=== PATIENT | female | born 1950 | race Caucasian/White ===

== ENCOUNTER → 2019-03-02 08:20 | Outpatient (CLI) | payer MEDICARE, OTHER, SELFPAY | PROVIDERS: Visit Provider Physician Assistant | DX: N39.0 Urinary tract infection, site not specified (principal) | CPT/HCPCS: 87086 ==

== ENCOUNTER → 2020-01-12 15:06 | Outpatient (CLI) | payer MEDICARE, OTHER, SELFPAY | PROVIDERS: Visit Provider Nurse Practitioner | DX: N39.0 Urinary tract infection, site not specified (principal) | CPT/HCPCS: 87086 ==

== ENCOUNTER → 2020-09-29 15:02 | Outpatient (CLI) | payer MEDICARE, OTHER, SELFPAY ==
[2020-09-29 17:00] LABS: Appearance Urine UA SL CLOUDY; Bilirubin Urine UA NEGATIVE (NEGATIVE); Leukocyte Esterase Urine UA TRACE (NEGATIVE); Occult Blood Urine UA NEGATIVE (Negative)
[2020-09-29 17:07] LABS: Color Urine UA ORANGE; RBC Urine 1-5/HPF (0-5/HPF); Squamous Epithelial Cell Urine 1-5 /HPF (0-5/HPF); WBC Urine 5-10/HPF (0-5/HPF)
[2020-09-29 17:08] LABS: Bacteria Urine Few (2-10); Calcium Oxalate Crystals Urine Moderate; Culture Indicated Urine Specimen Cultured
== END ==
PROVIDERS: PCP Nurse Practitioner Family; Referring Provider Nurse Practitioner Family; Visit Provider Nurse Practitioner Family
DX: R30.0 Dysuria (principal)
CPT/HCPCS: 81001; 87086

== ENCOUNTER 2020-12-07 18:51 | Emergency (ER) | payer MEDICARE, OTHER, SELFPAY ==
[2020-12-07 19:04] VITALS: BMI 34.5
--- NOTE | 2020-12-07 19:10 | DI.RAD.S_ITS ---
PROCEDURE: XR HUMERUS LT 2V INDICATIONS: fell against dresser. TECHNIQUE: 2 views of the humerus were acquired. COMPARISON: None. FINDINGS: Bones: Mildly impacted left humeral head fracture. Glenohumeral alignment appears intact. Degenerative changes of the glenohumeral and acromioclavicular joints. No suspicious bony lesions. Soft tissues: No suspicious soft tissue calcifications. IMPRESSION: Mildly impacted left humeral head fracture. Dictated by: Wali Saenz M.D. on 12/07/2020 at 19:35 Approved by: Wali Saenz M.D. on 12/07/2020 at 19:37
[2020-12-07] MEDS: KETOROLAC 60 MG/2 ML VIAL 30 MG IM (19:39)
[2020-12-07] MEDS: TRAMADOL 50 MG TABLET 25 MG PO (19:54)
--- NOTE | 2020-12-07 20:12 | ED.UPPEXIN ---
HPI - Extremity Injury (Upper) General Chief Complaint: Extremity Injury, Upper Stated Complaint: fell left shoulder Time Seen by Provider: 12/07/20 19:24 Source: patient and family Mode of arrival: Wheelchair Limitations: no limitations History of Present Illness HPI narrative: Patient here with . Patient complains of left shoulder pain/injury. Tonight was in her bedroom trying to get changed for the evening. Tripped on the bed comforter and left shoulder hit the night stand. Denies any other injuries. No numbness tingling weakness to the hand. MD complaint: injury to: left and shoulder Related Data Home Medications Medication Instructions Recorded Confirmed coQ10 (liposomal ubiquinol) PO 11/12/18 09/29/20 echinacea PO 11/12/18 09/29/20 multi vitamin PO 11/12/18 09/29/20 vitamin D PO 11/12/18 09/29/20 vitamin c PO 11/12/18 09/29/20 Previous Rx's Medication Instructions Recorded ondansetron 4 mg PO Q8H PRN #10 tab 12/07/20 tramadol 50 mg PO TID PRN #14 tab 12/07/20 Allergies Allergy/AdvReac Type Severity Reaction Status Date / Time orange surgical soap Allergy Mild rash Uncoded 09/29/20 14:36 Review of Systems Review of Systems Narrative: GENERAL: Denies chills, fatigue, malaise, fever, sweats. HEENT: Denies sinus pain, ear pain, sore throat, difficulty swallowing RESPIRATORY: Denies dyspnea, cough CARDIOVASCULAR: Denies chest pain, palpitations, edema, GASTROINTESTINAL: Denies nausea, vomiting, abdominal pain, diarrhea, constipation, melena. MUSCULOSKELETAL: Complains of muscle and bony pain SKIN: Denies rash, skin lesions NEUROLOGIC: Denies weakness, headache, numbness, change in speech, confusion PSYCHIATRIC: No SI or HI or hallucinations ROS Unobtainable: All systems reviewed & are unremarkable except as noted in HPI and below Patient History Medical History Glucosuria Retinal degeneration Social History Smoking Status: Never smoker Smoking Status: Never smoker alcohol intake frequency: 0-2 drinks per day Substance Use Type: does not use Exam Narrative Exam Narrative: GENERAL: patient appears stated age. Well-nourished, well-developed patient, in no distress, not toxic not dyspneic HEAD: Normocephalic. EXTREMITIES: Examination left upper extremity. 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 Able to seasonal warehouse associate strongly. Elbow nontender. Limited range of motion of the left shoulder due to pain. No gross deformity. No skin injury. No bruising. NEURO: AOx4. SKIN: Warm and dry PSYCH: Not anxious, is cooperative Course Course Course Narrative: Tramadol tolerated by patient. Orders Ordered: ED Orders 12/07/20 19:10 XR humerus LT 2V Stat Discontinued Medications Ketorolac Tromethamine (Ketorolac 60 Mg/2 Ml Vial) 30 mg IM NOW ONE Stop: 12/07/20 19:25 Last Admin: 12/07/20 19:39 Dose: 30 mg Documented by: SHABANA Tramadol HCl (Tramadol 50 Mg Tablet) 25 mg PO NOW ONE Stop: 12/07/20 19:50 Last Admin: 12/07/20 19:54 Dose: 25 mg Documented by: JEFF Tramadol HCl (Tramadol 50 Mg Prepack) [facility] Stop: 12/07/20 20:20 Last Admin: 12/07/20 20:23 Dose: 1 bottle Documented by: SHABANA Reevaluation(s) Reevaluation #1: Reviewed results with patient and discussion with Orthopedics. They agree with follow-up. Agree with pain medication prescribed. Time: 20:27 Consultations Consultation #1: Spoke with Dr. Baires, orthopedics. Agrees with sling and follow-up in the office. Time: 20:27 MDM - Extremity Injury (Upper) Differential Diagnosis Differential diagnosis: Likely fracture of humerus Imaging Data Extremity x-ray #1: Radiologist's Impression: [address] [id number] ReportSigned Patient: Ruth Stern [facility]#: [id number]: 1950Acct:[id number]/Sex: 70 / FDate of Service: 12/07/20Loc: EDAccession Number: [id number] Procedure: XR humerus LT 2V Ordering Provider: Joey Calderon MD PROCEDURE: XR HUMERUS LT 2V INDICATIONS: fell against dresser. TECHNIQUE: 2 views of the humerus were acquired. COMPARISON: None. FINDINGS: Bones: Mildly impacted left humeral head fracture. Glenohumeral alignment appears intact. Degenerative changes of the glenohumeral and acromioclavicular joints. No suspicious bony lesions. Soft tissues: No suspicious soft tissue calcifications. IMPRESSION: Mildly impacted left humeral head fracture. Dictated by: Wali Saenz M.D. on 12/07/2020 at 19:35 Approved by: Wali Saenz M.D. on 12/07/2020 at 19:37 [facility] Narrative Medical decision making narrative: Appropriate for discharge home. Pain control. Patient tolerated medication. The tolerated sling as well. Discharge Plan Departure Patient Disposition: Home Clinical Impression: Fracture of humeral head, closed Qualifiers: Encounter type: initial encounter Laterality: left Qualified Code(s): S42.292A - Other displaced fracture of upper end of left humerus, initial encounter for closed fracture Instructions: How to Use a Sling, DI for Humeral Fracture Activity Restrictions/Additional Instructions: No driving or operating machinery until cleared by Orthopedics. Call provided orthopedic office in the morning for office time within a week. Use sling for comfort. Return if worsening questions or concerns or numbness or tingling or weakness to the hand or arm. Prescriptions: New tramadol 50 mg tablet 50 mg PO TID PRN (Reason: pain) Qty: 14 RF: 0 ondansetron 4 mg tablet,disintegrating 4 mg PO Q8H PRN (Reason: nausea and vomiting) Qty: 10 RF: 0 No Action multi vitamin PO RF: 0 vitamin D PO RF: 0 echinacea PO RF: 0 coQ10 (liposomal ubiquinol) PO RF: 0 vitamin c PO RF: 0 Referrals: Dana Ascencio ARNP [Primary Care Provider] - Hardik Baires MD [Physician] -
[2020-12-07] MEDS: TRAMADOL 50 MG PREPACK 1 BOTTLE MISC (20:23)
== END 2020-12-07 20:35 | disposition home or self-care (01) ==
PROVIDERS: Emergency Provider Emergency Medicine; PCP Nurse Practitioner Family
DX: S42.292A Other displaced fracture of upper end of left humerus, initial encounter for closed fracture (principal); W22.8XXA Striking against or struck by other objects, initial encounter
CPT/HCPCS: 73060; 96372; 99283; J1885

== ENCOUNTER → 2020-12-14 08:51 | Outpatient (CLI) | payer MEDICARE, OTHER, SELFPAY ==
[2020-12-14] MEDS: COVID-19 VACC #1, MRNA(MOD) 100 MCG/0.5 ML VIAL IM (08:57)
== END ==
PROVIDERS: PCP Nurse Practitioner Family; Visit Provider Internal Medicine
DX: Z23 Encounter for immunization (principal)
CPT/HCPCS: 0011A; 91301

== ENCOUNTER → 2021-01-11 07:37 | Outpatient (CLI) | payer MEDICARE, OTHER, SELFPAY ==
[2021-01-11] MEDS: COVID-19 VACC #2, MRNA(MOD) 100 MCG/0.5 ML VIAL IM (07:47)
== END ==
PROVIDERS: PCP Nurse Practitioner Family; Visit Provider Internal Medicine
DX: Z23 Encounter for immunization (principal)
CPT/HCPCS: 0012A; 91301

== ENCOUNTER → 2021-07-18 07:21 | Outpatient (CLI) | payer MEDICARE, OTHER, SELFPAY | PROVIDERS: PCP Nurse Practitioner Family; Visit Provider Physician Assistant | DX: N39.0 Urinary tract infection, site not specified (principal) | CPT/HCPCS: 87086 ==

== ENCOUNTER 2021-08-17 10:33 | Emergency (ER) | payer MEDICARE, OTHER, SELFPAY ==
[2021-08-17 10:35] VITALS: BP 160/106; PULSE 81; RESP 14; TEMP 37; O2SAT 97; BMI 33.6
[2021-08-17 10:43] VITALS: BP 160/46; PULSE 80; RESP 18; O2SAT 98
--- NOTE | 2021-08-17 10:43 | ED.ABDPAIN ---
HPI - Abdominal Pain General Chief Complaint: Abdominal Pain Stated Complaint: Abd pain, dry heaving x 2 days Time Seen by Provider: 08/17/21 10:34 Source: patient Mode of arrival: Ambulatory Limitations: no limitations History of Present Illness HPI narrative: 71-year-old female nonsmoker with history of gastric surgery in 2010 presents with her in the chief complaint of left lower quadrant pain for the past few days and dry heaves. She states her pain seems to be worse with motion and standing up and improves with rest. She denies any radiation of the pain. She states it aching crampy in nature. She states it is about a 6/10 in severity that has been present more often than not over the past few days. She denies any history of the same. She has had nausea and dry heaves but no actual vomiting. She states that she took some Pepto-Bismol which helped a bit with the nausea but has done nothing for the pain. She denies any change in bowel habits such as constipation or diarrhea. She denies any dysuria, frequency or urgency but was treated for UTI about 2 weeks ago. She is not dizzy nor weak or lightheaded. She does feel fatigued and slept much of the day yesterday. She has had no respiratory symptoms nor any exposure to those with COVID Related Data Home Medications Medication Instructions Recorded Confirmed coQ10 (liposomal ubiquinol) PO 11/12/18 07/18/21 echinacea PO 11/12/18 07/18/21 multi vitamin PO 11/12/18 07/18/21 vitamin D PO 11/12/18 07/18/21 vitamin c PO 11/12/18 07/18/21 acetaminophen 500 mg tablet 500 mg PO Q6H PRN 03/15/21 07/18/21 (Tylenol Extra Strength) Previous Rx's Medication Instructions Recorded loratadine-pseudoephedrine ER 10 1 tab PO DAILY #30 tab 03/15/21 mg-240 mg tablet,extended [id number] (Claritin-D 24 Hour) hydrocodone 5 mg-acetaminophen 325 1 tab PO Q4-6H PRN #10 tab 08/17/21 mg tablet ketorolac 10 mg tablet 10 mg PO Q6H PRN #14 tab 08/17/21 ondansetron 4 mg disintegrating 4 mg PO TID-QID PRN #10 tab 08/17/21 tablet tamsulosin 0.4 mg capsule (Flomax) 0.4 mg PO DAILY #20 cap 08/17/21 Allergies Allergy/AdvReac Type Severity Reaction Status Date / Time orange soap in OR Allergy Uncoded 08/17/21 10:42 Review of Systems Review of Systems Narrative: GENERAL: See HPI HEENT: Denies sinus pain, ear pain, sore throat, difficulty swallowing, dizziness. RESPIRATORY: Denies dyspnea, cough, wheezing, hemoptysis, sputum. CARDIOVASCULAR: Denies chest pain, palpitations, orthopnea, edema, GASTROINTESTINAL: See HPI : Denies dysuria, frequency, incontinence, hematuria, urinary retention. MUSCULOSKELETAL: denies weakness, joint pain, or bony pain SKIN: Denies rash, skin lesions, or other NEUROLOGIC: Denies weakness, headache, numbness, change in speech, confusion, seizures, incoordination. PSYCHIATRIC: No concerning psychosocial issues. 12 point review of systems is negative except for those stated above Patient History Medical History Glucosuria Retinal degeneration Seasonal allergies Social History Smoking Status: Never smoker Smoking Status: Never smoker alcohol intake frequency: 0-2 drinks per day Substance Use Type: does not use Exam Narrative Exam Narrative: GENERAL: [71 year old patient appears stated age. Well-developed patient, in mild distress. HEAD: Atraumatic. Normocephalic. EYES: Pupils equal round and reactive. Extraocular motions intact. No scleral icterus. No injection or drainage. ENT: Nose without bleeding, purulent drainage. Throat without erythema, tonsillar hypertrophy or exudate. Airway patent. NECK: Trachea midline. Non tender CARDIOVASCULAR: Regular rate and rhythm without murmurs, gallops, or rubs. RESPIRATORY: Clear to auscultation. Breath sounds equal bilaterally. No wheezes, rales, or rhonchi. GASTROINTESTINAL: Abdomen soft, non-tender, nondistended. EXTREMITIES: No edema or joint tenderness. BACK: Nontender without deformity or crepitance. No flank tenderness. NEURO: AOx3. SKIN: No rash or erythema of visible areas Initial Vital Signs Initial Vital Signs: Vital Signs Temperature 98.6 F 08/17/21 10:35 Pulse Rate 81 08/17/21 10:35 Respiratory Rate 14 08/17/21 10:35 Blood Pressure 160/106 H 08/17/21 10:35 Pulse Oximetry 97 08/17/21 10:35 Course Orders Ordered: Discontinued Medications Hydromorphone HCl (Hydromorphone 0.5 Mg Inj) 0.5 mg IV NOW ONE Stop: 08/17/21 11:43 Last Admin: 08/17/21 11:47 Dose: 0.5 mg Documented by: DOLORES Sodium Chloride (Normal Saline 0.9%) 1,000 mls @ 1,000 mls/hr IV BOLUS ONE Stop: 08/17/21 11:42 Last Infusion: 08/17/21 11:55 Dose: 0 mls/hr Documented by: Admin: 08/17/21 10:50 Dose: 1,000 mls/hr Documented by: HARDY Ondansetron HCl (Ondansetron 4 Mg/2 Ml Inj) 4 mg IV NOW ONE Stop: 08/17/21 10:44 Last Admin: 08/17/21 10:51 Dose: 4 mg Documented by: HARDY Pantoprazole Sodium (Pantoprazole 40 Mg Vial) 40 mg IV NOW ONE Stop: 08/17/21 10:44 Last Admin: 08/17/21 10:50 Dose: 40 mg Documented by: HARDY Vital Signs Vital signs: Vital Signs - 8 hr 08/17/21 10:35 08/17/21 10:43 Temperature 98.6 F Pulse Rate 81 80 Respiratory Rate 14 18 Blood Pressure 160/106 H 160/46 H Pulse Oximetry 97 98 MDM - Abdominal Pain Lab Data Result diagrams: 08/17/21 10:55 08/17/21 10:55 Labs: Lab Results 08/17/21 08/17/21 Range/Units 10:55 10:55 WBC 9.2 (4.5-11.0) X10^3/uL RBC 4.35 (4.0-5.2) X10^6/uL Hgb 12.8 (12.0-16.0) g/dL Hct 38.7 (36-46) % MCV 88.9 (80-100) fL MCH 29.5 (26-34) PG MCHC 33.2 (30-36) % RDW 13.4 (11.6-14.8) % Plt Count 179 (150-400) X10^3/uL Neut % (Auto) 75.9 H (50-75) % Lymph % (Auto) 14.4 L (25-40) % [place] % (Auto) 8.3 (3-14) % Eos % (Auto) 0.8 L (2-4) % Baso % (Auto) 0.6 (0-2) % Neut # (Auto) 7000 (8354-6742) /uL Lymph # (Auto) 1300 (2146-4433) /uL [place] # (Auto) 800 (0-900) /uL Eos # (Auto) 100 (0-450) /uL Baso # (Auto) 100 (0-100) /uL Sodium 134 L (137-145) mmol/L Potassium 4.2 (3.4-5.1) mmol/L Chloride 99 (98-107) mmol/L Carbon Dioxide 27 (22-32) mmol/L BUN 23 H (7-17) mg/dL Creatinine 1.06 H (0.52-1.04) mg/dL Estimated GFR 51.1 L (>60) mL/min BUN/Creatinine Ratio 21.7 (6-22) Glucose 294 H (80-110) mg/dL Calcium 9.2 (8.4-10.2) mg/dL Total Bilirubin 0.8 (0.2-1.3) mg/dL AST 25 (14-36) IU/L ALT 15 (<35) IU/L Alkaline Phosphatase 85 (38-126) U/L Total Protein 6.8 (6.3-8.2) g/dL Albumin 4.1 (3.5-5.0) g/dL Globulin 2.7 (1.7-4.1) g/dL Albumin/Globulin Ratio 1.5 (1.0-2.8) Lipase 47 (23-300) U/L Imaging Data CT scan - abdomen/pelvis: Radiologist's Impression: [address] [address] [address] Scan Report Signed Patient: Ruth Stern MR#: [id number] : 1950 Acct:[id number] Age/Sex: 71 / F Date of Service: 08/17/21 Loc: ED Accession Number: [id number] ?? Procedure: CT abdomen pelvis w con Ordering Provider: J Carlos Moody D.O. PROCEDURE:? CT ABDOMEN PELVIS W CON ? INDICATIONS:? abdominal pain, history gastric surgery, dry heaving ? TECHNIQUE:? After the administration of IV contrast, axial sections were acquired from the lung bases to the pubic symphysis.? Coronal and sagittal reformats were performed.? For radiation dose reduction, the following was used:? automated exposure control, adjustment of mA and/or kV according to patient size. ? COMPARISON:? None. ? FINDINGS:? Image quality:? Excellent.? ? Lung bases:? Unremarkable.? ? Heart:? No significant findings. ? ? ABDOMEN: Liver:? Liver is enlarged with mild steatosis. Gallbladder:? There are 2 foci of increased density along the inferior wall.? No wall thickening. Biliary ducts:? Unremarkable.? ? Pancreas:? Unremarkable.? ? Spleen:? Unremarkable.? ? Adrenal Glands:? Unremarkable.? ? Kidneys and Ureters:? There is a 5 mm calcification Hounsfield units 495 at the left ureterovesicular junction.? There is moderate to severe hydronephrosis and hydroureter.? Left perinephric edema and stranding is present.? The right kidney demonstrates a 7 mm central calcification Hounsfield units 695. There is no obstruction.? ? Stomach and Bowel:? Stomach, small bowel loops, and colon are unremarkable.? Peritoneum:? No abnormal intraperitoneal fluid.? No free air.? ? Ventral Wall: ? No hernia.? Abdominal Nodes:? No retroperitoneal or mesenteric adenopathy by size criteria.? Vessels:? Aorta and inferior vena cava are normal in size.? ? PELVIS: Pelvic Organs:? Uterus is markedly enlarged and heterogeneous in appearance. Bladder:? Unremarkable.? ? Pelvic Nodes: No enlarged lymph nodes.? Miscellaneous: No inguinal hernias are seen. ? ? ? Bones:? Unremarkable.? IMPRESSION:? ? 1. 5 mm calcification at the left ureterovesicular junction with moderate to severe left hydronephrosis and hydroureter. ? 2. Nonobstructing 7 mm right renal calculus. ? 3. Markedly enlarged appearance of the uterus and heterogeneous.? This could represent longstanding fibroids.? However, given patient's age, further evaluation with pelvic ultrasound is recommended to exclude presence of more aggressive underlying mass lesion.? Dictated by: Poornima Cabezas M.D. on 08/17/2021 at 11:55 ? ? Approved by: Poornima Cabezas M.D. on 08/17/2021 at 12:04 ? MDM Narrative Medical decision making narrative: Patient presents with left lower quadrant pain and dry heaves. Multiple diagnoses considered including complications of her prior gastric surgery, bowel obstruction, diverticulitis, kidney stone and other. Symptoms are largely in left lower quadrant but to have episodes that seem colicky in nature which are consistent with diagnosis of kidney stone. Labs are reassuring, response to therapies her reassuring. Pain is well controlled and she is able to tolerate orals. Return precautions given and questions answered to her apparent satisfaction Discharge Plan Departure Patient Disposition: Home Clinical Impression: Kidney stone on left side Instructions: DI for Kidney Stones Activity Restrictions/Additional Instructions: *You have been diagnosed with [left-sided kidney stone without evidence of obstruction or infection *What to do: *Please continue to take your regular medications as directed. [x ] New medication prescriptions sent to your pharmacy: [ ] [ ] New medication written as a paper prescription [ ] No new medications given *Please follow up with your primary care provider in 2-3 days, call for an appointment. Let them know you were seen in the Emergency Department and that we ask that you be seen in follow up. We will electronically transmit a record of today's note if your PCP is in our system *The CT noted an irregular appearance of your uterus and radiology recommended an outpatient ultrasound to get a better look. This is unlikely to be related to today's visit *Return to Emergency Department if you should have any new, worsening or concerning symptoms, such as [fever greater than 101 F, shaking chills, worsening pain, persistent vomiting or other bothersome symptoms] Prescriptions: New hydrocodone-acetaminophen 5-325 mg tablet 1 tab PO Q4-6H PRN (Reason: pain) Qty: 10 RF: 0 ketorolac 10 mg tablet 10 mg PO Q6H PRN (Reason: pain) Qty: 14 RF: 0 tamsulosin [Flomax] 0.4 mg capsule 0.4 mg PO DAILY Qty: 20 RF: 0 ondansetron 4 mg tablet,disintegrating 4 mg PO TID-QID PRN (Reason: nausea and vomiting) Qty: 10 RF: 0 No Action multi vitamin PO RF: 0 vitamin D PO RF: 0 echinacea PO RF: 0 coQ10 (liposomal ubiquinol) PO RF: 0 vitamin c PO RF: 0 acetaminophen [Tylenol Extra Strength] 500 mg tablet 500 mg PO Q6H PRNRF: 0 loratadine-pseudoephedrine [Claritin-D 24 Hour] 10-240 mg tablet extended release 24 hr 1 tab PO DAILY Qty: 30 RF: 0 Referrals: Dana Ascencio ARNP [Primary Care Provider] - Arnaldo Flores MD [Physician] -
[2021-08-17] MEDS: SODIUM CHLORIDE 0.9% 1,000 ML 1000 ML IV (10:50)
[2021-08-17] MEDS: PANTOPRAZOLE 40 MG VIAL IV (10:50)
[2021-08-17] MEDS: ONDANSETRON 4 MG/2 ML INJ IV (10:51)
[2021-08-17 10:57] LABS: Add Manual Diff / Slide Review NO; Basophils Absolute Auto 100 /uL (0-100); Basophils Percent Auto 0.6 % (0-2); Eosinophils Absolute Auto 100 /uL (0-450); Eosinophils Percent Auto 0.8 % (2-4); Hematocrit 38.7 % (36-46); Hemoglobin 12.8 g/dL (12.0-16.0); Lymphocytes Absolute Auto 1300 /uL (1100-4500); Lymphocytes Percent Auto 14.4 % (25-40); Mean Corpuscular HGB Conc 33.2 % (30-36); Mean Corpuscular Hemoglobin 29.5 PG (26-34); Mean Corpuscular Volume 88.9 fL (80-100); Monocytes Absolute Auto 800 /uL (0-900); Monocytes Percent Auto 8.3 % (3-14); Neutrophils Absolute Auto 7000 /uL (1500-7000); Neutrophils Percent Auto 75.9 % (50-75); Platelet Count 179 X10^3/uL (150-400); Red Blood Cell Count 4.35 X10^6/uL (4.0-5.2); Red Cell Distribution Width 13.4 % (11.6-14.8); White Blood Cell Count 9.2 X10^3/uL (4.5-11.0)
[2021-08-17 11:13] LABS: Alanine Aminotransferase 15 IU/L (<35); Albumin 4.1 g/dL (3.5-5.0); Albumin Globulin Ratio 1.5 (1.0-2.8); Alkaline Phosphatase 85 U/L (38-126); Aspartate Aminotransferase 25 IU/L (14-36); BUN Creatinine Ratio 21.7 (6-22); Bilirubin Total 0.8 mg/dL (0.2-1.3); Blood Urea Nitrogen 23 mg/dL (7-17); Calcium 9.2 mg/dL (8.4-10.2); Carbon Dioxide 27 mmol/L (22-32); Chloride 99 mmol/L (98-107); Estimated Glomerular Filt Rate 51.1 mL/min (>60); Globulin 2.7 g/dL (1.7-4.1); Glucose 294 mg/dL (80-110); HEMOLYSIS < 15 (0-50); Lipase 47 U/L (23-300); Potassium 4.2 mmol/L (3.4-5.1); Sodium 134 mmol/L (137-145); Total Protein 6.8 g/dL (6.3-8.2)
--- NOTE | 2021-08-17 11:40 | PC.NURSE ---
Patient has hx of gastric sleeve surgery, bladder infections and low energy. C/O LLQ pain 06/27. aware.
[2021-08-17] MEDS: HYDROMORPHONE 0.5 MG INJ IV (11:47)
--- NOTE | 2021-08-17 11:48 | DI.CT.S_ITS ---
PROCEDURE: CT ABDOMEN PELVIS W CON INDICATIONS: abdominal pain, history gastric surgery, dry heaving TECHNIQUE: After the administration of IV contrast, axial sections were acquired from the lung bases to the pubic symphysis. Coronal and sagittal reformats were performed. For radiation dose reduction, the following was used: automated exposure control, adjustment of mA and/or kV according to patient size. COMPARISON: None. FINDINGS: Image quality: Excellent. Lung bases: Unremarkable. Heart: No significant findings. ABDOMEN: Liver: Liver is enlarged with mild steatosis. Gallbladder: There are 2 foci of increased density along the inferior wall. No wall thickening. Biliary ducts: Unremarkable. Pancreas: Unremarkable. Spleen: Unremarkable. Adrenal Glands: Unremarkable. Kidneys and Ureters: There is a 5 mm calcification Hounsfield units 495 at the left ureterovesicular junction. There is moderate to severe hydronephrosis and hydroureter. Left perinephric edema and stranding is present. The right kidney demonstrates a 7 mm central calcification Hounsfield units 695. There is no obstruction. Stomach and Bowel: Stomach, small bowel loops, and colon are unremarkable. Peritoneum: No abnormal intraperitoneal fluid. No free air. Ventral Wall: No hernia. Abdominal Nodes: No retroperitoneal or mesenteric adenopathy by size criteria. Vessels: Aorta and inferior vena cava are normal in size. PELVIS: Pelvic Organs: Uterus is markedly enlarged and heterogeneous in appearance. Bladder: Unremarkable. Pelvic Nodes: No enlarged lymph nodes. Miscellaneous: No inguinal hernias are seen. Bones: Unremarkable. IMPRESSION: 1. 5 mm calcification at the left ureterovesicular junction with moderate to severe left hydronephrosis and hydroureter. 2. Nonobstructing 7 mm right renal calculus. 3. Markedly enlarged appearance of the uterus and heterogeneous. This could represent longstanding fibroids. However, given patient's age, further evaluation with pelvic ultrasound is recommended to exclude presence of more aggressive underlying mass lesion. Dictated by: Poornima Cabezas M.D. on 08/17/2021 at 11:55 Approved by: Poornima Cabezas M.D. on 08/17/2021 at 12:04
[2021-08-17 13:02] VITALS: BP 180/70; PULSE 60; RESP 16; O2SAT 96
[2021-08-17 13:25] VITALS: BP 180/70; PULSE 62; RESP 18; O2SAT 97
== END 2021-08-17 13:26 | disposition home or self-care (01) ==
PROVIDERS: Emergency Provider Emergency Medicine; PCP Nurse Practitioner Family
DX: N20.0 Calculus of kidney (principal); R11.0 Nausea
CPT/HCPCS: 36415; 74177; 80053; 83690; 85025; 96361; 96374; 96375; 99284; C9113; J1170; J2405

== ENCOUNTER → 2021-08-22 11:37 | Outpatient (CLI) | payer MEDICARE, OTHER, SELFPAY | PROVIDERS: PCP Nurse Practitioner Family; Visit Provider Registered Nurse | DX: N39.0 Urinary tract infection, site not specified (principal); N20.0 Calculus of kidney | CPT/HCPCS: 87086 ==

== ENCOUNTER → 2021-09-06 07:49 | Outpatient (CLI) | payer MEDICARE, OTHER, SELFPAY ==
--- NOTE | 2021-09-06 07:50 | DI.US.S_ITS ---
PROCEDURE: US PELVIC COMPLETE INDICATIONS: ENLARGED UTERUS TECHNIQUE: Real-time scanning was performed of the pelvic organs, with image documentation. Additional endovaginal scanning was necessary due to incomplete visualization of the adnexal and endometrial structures by transabdominal scanning. COMPARISON: [facility], CT, CT ABDOMEN PELVIS W CON, 08/17/2021, 11:29. FINDINGS: Uterus: Uterus is enlarged at 13.0 x 7.5 x 9.1 cm. There is a very large, markedly heterogeneous central uterine mass which extends from the submucosal region or possibly the endometrial canal to the subserosal region measuring approximately 8.4 x 6.3 x 8.3 cm. The endometrium is not identified. Ovaries: Not seen, possibly secondary to involutional change or bowel gas. Other: No pathologic free abdominal or pelvic fluid. IMPRESSION: There is a very large central uterine mass. This may very well be a fibroid. However, cannot exclude endometrial carcinoma or fibrosarcoma. Dictated by: Ez Monzon M.D. on 09/06/2021 at 10:31 Approved by: Ez Monzon M.D. on 09/06/2021 at 10:44
== END ==
PROVIDERS: PCP Nurse Practitioner Family; Referring Provider Obstetrics & Gynecology; Visit Provider Obstetrics & Gynecology
DX: R93.89 Abnormal findings on diagnostic imaging of other specified body structures (principal); N85.2 Hypertrophy of uterus; N85.9 Noninflammatory disorder of uterus, unspecified
CPT/HCPCS: 76830; 76856

== ENCOUNTER → 2021-10-16 09:15 | Outpatient (CLI) | payer MEDICARE, OTHER, SELFPAY ==
[2021-10-16 13:42] LABS: COVID19 -Nasal RAPID Negative (Negative)
== END ==
PROVIDERS: PCP Nurse Practitioner Family; Visit Provider Obstetrics & Gynecology
DX: Z01.812 Encounter for preprocedural laboratory examination (principal); Z20.822 Contact with and (suspected) exposure to COVID-19
CPT/HCPCS: 87635; C9803

== ENCOUNTER 2021-10-17 08:14 | Day surgery (SDC) | payer MEDICARE, OTHER, SELFPAY ==
[2021-10-05 08:19] VITALS: BMI 37.0
[2021-10-17] VITALS (8 sets, daily range): BP systolic 131–153; BP diastolic 58–89; PULSE 72–91; RESP 15–20; TEMP 36.3–37.2; O2SAT 96–100; BMI 37.0
--- NOTE | 2021-10-17 | PATH_ITS ---
[facility] Accession Number: [id number] . 01 Material submitted: . endometrium - ENDOMETRIAL CURETTINGS . 02 Diagnosis: Endometrial Curettings: Fragments of mildly inflamed tissue, favor origin from lower uterine segment; negative for glandular hyperplasia, cytologic atypia, or malignancy. Mildly inflamed portions of endocervical tissue, some with features of polyp; negative for glandular dysplasia or malignancy. Avulsed portions of squamous and metaplastic squamous mucosa with reactive features; negative for squamous dysplasia or malignancy. Strips of endometrial glandular epithelium; negative for glandular hyperplasia, cytologic atypia, or malignancy. PENDING SALE TO [facility] 10/18/2021 1730 Local . 02 Electronically signed: . Ana Quintana MD, Pathologist NPI- [id number] . 01 Gross description: . ENDOMETRIAL CURETTINGS: Received in formalin are minute fragments of mucoid and hemorrhagic material measuring 0.3 x 0.3 x 0.1 cm in aggregate. Submitted in toto in 1 cassette. /KATJA 10/18/2021 0142 Local . 02 Pathologist provided ICD-10: N85.8 . 02 CPT . 909197 Performed at: 01 [facility] [address], [place], [place] [id number] MD Larry Willis MD Phone: [phone] Performed at: 02 [facility] [address] [place], [place] [id number] MD Terra Sahu MD Phone: [phone]
[2021-10-17] MEDS: LACTATED RINGERS 1,000 ML 100 ML IV (08:58)
--- NOTE | 2021-10-17 10:33 | PM.GYNOP.1 ---
Operative Date/Time/Diagnoses Date of procedure: 10/17/21 Time of procedure: 11:40 Pre-op diagnosis: Uterine mass Post-op diagnosis: same Procedure & Clinicians Procedure: Procedures Operation Date: 10/17/21 09:45 <No data on this case meets the specified criteria> Indications: Uterine mass on CT and ultrasound Cramping Surgeon: Neha Ang Anesthesia Type: General (LMA) Operative Notes Findings: 13 week size uterus Intrauterine cavity measures about 8 cm Both fallopian tube ostia observed Closure Type: not applicable Specimen(s): endometrial curettings Estimated blood loss (mL): 5 Blood products transfused: none Procedure in detail: After informed consent was obtained, the patient was taken the operating room where she was placed in the dorsal supine position. After adequate LMA general anesthesia was achieved, she was placed in the dorsal lithotomy position, and prepped with baby shampoo, and draped in the usual fashion. A time-out was performed. A bivalve speculum was placed into the vagina and the anterior lip of the cervix grasped with a single-tooth tenaculum. The cervical os was sequentially dilated until the hysteroscope could pass easily into the endometrial cavity. Initial inspection with the hysteroscope revealed no mass in the uterus. At the fundus of the uterus there appeared to be some synechiae with some gentle pressure with fluid opened up another 2-3 cm. For fear of perforating the uterus the scope was not advanced any further. The hysteroscope was removed from the uterus. Gentle sharp curettage was performed yielding a small amount of endometrial curettings. The single-tooth tenaculum was removed from the anterior lip of the cervix. The bivalve speculum was removed from the vagina. Sponge, lap, and instrument counts were correct x2. The patient tolerated the procedure well, and was taken to PACU in stable condition. Complications: none Post-operative Condition: stable Disposition: PACU Plan for aftercare: Home after recovery
--- NOTE | 2021-10-17 10:34 | P.HP_ITS ---
History of Present Illness History of Present Illness Date Patient Seen: 10/17/21 Time Patient Seen: 10:34 Chief complaint: [facility] [place]arrative: Patient is a 71-year-old 2 para 2 who presents for a D&C hysteroscopy with resection of uterine mass. This mass was initially picked up on CT scan. A follow-up pelvic ultrasound showed an 8 cm uterine mass. Patient History Medical History Glucosuria Retinal degeneration Seasonal allergies Family & Social History Social History: household members spouse Tobacco & Substance use: Smoking Status Never smoker alcohol intake current alcohol intake frequency a few times a week Substance Use Type does not use Meds Home Medications and Allergies Home Medications Medication Instructions Recorded Confirmed Type acetaminophen 500 mg tablet 500 mg PO Q6H PRN 03/15/21 10/17/21 History (Tylenol Extra Strength) loratadine-pseudoephedrine ER 10 1 tab PO DAILY #30 tab 03/15/21 10/17/21 Rx mg-240 mg tablet,extended [id number] (Claritin-D 24 Hour) ascorbic acid (vitamin C) 1,000 mg 500 mg PO DAILY 10/17/21 10/17/21 History tablet (Vitamin C) cholecalciferol (vitamin D3) 50 50 mcg PO DAILY 10/17/21 10/17/21 History mcg (2,000 unit) tablet (Vitamin D3) echinacea 500 mg capsule 500 mg PO DAILY 10/17/21 10/17/21 History multivitamin 1 tab PO DAILY 10/17/21 10/17/21 History Allergies Allergy/AdvReac Type Severity Reaction Status Date / Time nickel AdvReac Intermediate Verified 10/17/21 09:00 orange soap in OR Allergy Severe Rash Uncoded 10/16/21 15:09 Exam Vital Signs (past 8 hours): - 10/17/21 08:55 Temperature 97.3 F L Pulse Rate 72 Respiratory Rate 20 Blood Pressure 136/78 Pulse Oximetry 99 Oxygen Delivery Method Room Air Narrative Exam Narrative: HEENT: No thyromegaly, no anterior cervical or supraclavicular lymphadenopathy. Lungs:Clear to auscultation bilaterally, no wheezes. Cardiovascular: Regular rate and rhythm, no murmurs, rubs, or gallops. Abdomen: No scars. No hepatosplenomegaly. No masses palpable. External genitalia: Normal Vagina: Normal Cervix: Normal Bimanual exam: [12 Week size anteverted uterus. Mobile.] No adnexal masses or tenderness Extremities: No edema Assessment & Plan Assessment and plan (1) Enlarged uterus: Status: Acute (2) Endometrial mass: Status: Acute Assessment & Plan narrative: Assessment: 71-year-old 2 para 2 with an enlarged uterus with an endometrial mass Plan: D&C hysteroscopy with resection of mass The risks, benefits, and alternatives to the procedure were explained to the patient. The risks including bleeding, infection, and uterine perforation. She understands these risks and agrees to proceed. A full par Q was held and consent form was signed. COVID-19 COVID-19 status: Negative Result date/Date tested (Pos, Neg/Pending): 10/16/21 Time Spent With Patient Time with patient: less than 30 minutes Critical Care time: I spent a total of [] minutes of critical care time on this patient's care today; this time is exclusive of procedural time.
--- NOTE | 2021-10-17 10:44 | PM.PREOP ---
Pre-operative Note COVID-19 COVID-19 status: Negative Result date/Date tested (Pos, Neg/Pending): 10/16/21 Interval Note History & Physical reviewed/Exam performed by Physician: Yes Changes to H&P: No H&P completed within 30 days and has changed as indicated here:: 10/17/21
--- NOTE | 2021-10-17 11:46 | SUR.OPER ---
Lithotomy on padded OR bed, head on pillow, arms secured on padded arm boards at <90 degrees abduction. Legs secured in padded yellow fins stirrups. Patient voided in pre-op prior to entering OR.
--- NOTE | 2021-10-17 12:16 | SUR.PHASEII ---
Assumed care from Cassie, drinking water and eating crackers. States pain tolerable, 1/10 cramping discomfort.
--- NOTE | 2021-10-17 12:42 | SUR.PHASEII ---
Pt ready to go, scant bloody drainage on pad. Ride available, left unit in stable condition.
== END 2021-10-17 12:43 | disposition home or self-care (01) ==
PROVIDERS: PCP Nurse Practitioner Family; Referring Provider Obstetrics & Gynecology; Visit Provider Obstetrics & Gynecology
PROC: 0UDB8ZZ Extraction of Endometrium, Via Natural or Artificial Opening Endoscopic (ICD-10-PCS; CPT 58558; principal; 2021-10-17 09:45)
DX: N85.8 Other specified noninflammatory disorders of uterus (principal)
CPT/HCPCS: 58558; J1100; J2250; J2405; J2704; J3010

== ENCOUNTER → 2021-11-20 13:06 | Outpatient (CLI) | payer MEDICARE, OTHER, SELFPAY ==
[2021-11-20 13:59] LABS: COVID19 -Nasal RAPID Negative (Negative)
== END ==
PROVIDERS: PCP Nurse Practitioner Family; Referring Provider Obstetrics & Gynecology; Visit Provider Obstetrics & Gynecology
DX: Z01.812 Encounter for preprocedural laboratory examination (principal); Z20.822 Contact with and (suspected) exposure to COVID-19
CPT/HCPCS: 87635

== ENCOUNTER → 2021-12-25 09:18 | Outpatient (CLI) | payer MEDICARE, OTHER, SELFPAY ==
[2021-12-25 10:18] LABS: Appearance Urine UA SL CLOUDY; Bilirubin Urine UA NEGATIVE (NEGATIVE); Color Urine UA YELLOW; Glucose Urine UA 3+ g/dL (Negative); Ketones Urine UA NEGATIVE (NEGATIVE); Leukocyte Esterase Urine UA NEGATIVE (NEGATIVE); Nitrite Urine UA NEGATIVE (Negative); Occult Blood Urine UA NEGATIVE (Negative); Protein Urine UA NEGATIVE (Negative); Specific Gravity Urine UA 1.015 (1.000-1.035)
[2021-12-25 10:19] LABS: pH Urine UA 5.5 (4.5-8.0)
== END ==
PROVIDERS: PCP Nurse Practitioner Family; Referring Provider Obstetrics & Gynecology; Visit Provider Obstetrics & Gynecology
DX: N30.01 Acute cystitis with hematuria (principal)
CPT/HCPCS: 81003

== ENCOUNTER → 2022-01-10 10:01 | Outpatient (CLI) | payer MEDICARE, OTHER, SELFPAY ==
[2022-01-10 10:44] LABS: COVID19 -Nasal RAPID Negative (Negative)
== END ==
PROVIDERS: Visit Provider Obstetrics & Gynecology
DX: Z01.812 Encounter for preprocedural laboratory examination (principal); Z20.822 Contact with and (suspected) exposure to COVID-19
CPT/HCPCS: 87635

== ENCOUNTER 2022-01-12 12:04 | Inpatient (IN) | payer MEDICARE, OTHER, SELFPAY ==
[2022-01-10 08:09] VITALS: BMI 37.2
[2022-01-11] VITALS (13 sets, daily range): BP systolic 125–156; BP diastolic 47–70; PULSE 53–83; RESP 15–24; TEMP 35.6–36.9; O2SAT 95–99; BMI 37.2
--- NOTE | 2022-01-11 | PATH_ITS ---
[facility] Accession Number: [id number] . 01 Material submitted: . uterus - UTERUS, BILATERAL FALLOPIAN TUBES AND OVARIES . 02 Diagnosis: A. 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 Weakly proliferative endometrium with features of chronic endometritis. Left ovary with benign simple epithelial-lined cyst, and right ovary within normal limits. Bilateral fallopian tubes within normal limits. No evidence of endometrioid intraepithelial neoplasia, dysplasia, or malignancy. MRV 01/15/2022 1404 Local . 02 Electronically signed: . Isabell Rivera MD, Pathologist NPI- [id number] . 01 Gross description: . The specimen is received in formalin, labeled with the patient's name and uterus, bilateral fallopian tubes and ovaries, is 329-gram supracervical hysterectomy specimen which measures 10.0 cm from fundus to inferior end by 8.0 cm cornu to cornu by 5.5 cm anterior to posterior. There are attached bilateral fallopian tubes and ovaries. The serosa of the uterus is laws-brown, smooth and glistening. The uterus is bivalved to reveal a blandon-pink to blandon-brown focally hemorrhagic apparent endometrial cavity which is distorted and measures approximately 4.0 x 2.0 cm. The specimen is distorted because of a blandon-white whorled nodule present replacing the lateral myometrial area. The nodule measures 5.0 x 5.5 by approximately 4.5 cm. The myometrium on the right side/the opposite side is unremarkable and shows a blandon-white, light brown appearance and trabeculation, and measures 1.0 cm in maximum thickness. Sectioning the larger nodule reveals a blandon-white whorled cut surface. Areas of necrosis, cystic degeneration or hemorrhage are not identified. The right fallopian tube measures 6.0 cm and the left fallopian tube measures 7.0 cm. Both have an average diameter of 0.4 to 0.5 cm. Possible paratubal and paraovarian cysts are identified. Sectioning reveals stellate pinpoint lumen. The right ovary has a smooth blandon-yellow outer surface and it measures 1.7 x 1.0 x 0.8 cm. A possible 0.5 x 0.4 cm paraovarian/paratubal cyst is identified. Sectioning the right ovary reveals a blandon-white to blandon-brown cut surface. Discrete lesions are not identified. Fire Information Officer sections are submitted. The left ovary shows a blandon-brown smooth outer surface. It measures 2.0 x 0.7 x 0.8 cm. A possible 0.5 x 0.5 cm paraovarian cyst is identified, which is filled with clear fluid. Sectioning the ovary reveals a blandon-white cut surface. Discrete lesions are not identified. Fire Information Officer sections are submitted. . Summary of Sections: A1-A2 - Anterior endomyometrium. A3 - Posterior endometrium with underlying submucosal large nodule/leiomyoma. A4 - Fire Information Officer sections of posterior endometrium. A5-A8 - Fire Information Officer sections of the possible leiomyoma showing subserosal location in A6 and A7. A9 - Right fallopian tube. A10 - Left fallopian tube. A11 - Right ovary with possible paraovarian cyst. A12 - Left ovary with possible paraovarian cyst. ([id number]) /MRV 01/12/[address] [place] [address] . 02 Pathologist provided ICD-10: D25.9 . 02 CPT . 322773 Specimen Comment: A courtesy copy of this report has been sent to [phone] Performed at: 01 [facility] Cyt[facility] [address] [facility], [place], [place] [id number] MD Larry Willis MD Phone: [phone] Performed at: 02 [facility] [address] [place], [place] [id number] MD Terra Sahu MD Phone: [phone]
[2022-01-11] MEDS: LACTATED RINGERS 1,000 ML 100 ML IV ×3 (09:05→14:41)
--- NOTE | 2022-01-11 09:22 | SUR.PREOP ---
Dr Ang notified fo CBG 236 and the patient does not take any diabetic medication.
--- NOTE | 2022-01-11 09:45 | PM.HP.1 ---
History of Present Illness History of Present Illness Date Patient Seen: 01/11/22 Time Patient Seen: 09:45 Chief complaint: [facility] *OPB* Narrative: Patient is a 71-year-old 2 para 2 with an enlarged fibroid uterus and postmenopausal bleeding. She presents for a laparoscopic supracervical hysterectomy with bilateral salpingo-oophorectomy. Patient History Medical History Diabetes Diabetic retinopathy, nonproliferative Glucosuria Injection of surface of left eye (09/16/20) Retinal degeneration Seasonal allergies Surgical History (Updated 01/11/22 @ 08:32 by Anusha Brunson RN) Cataract extraction status, left eye (11/18/15) History of hysteroscopy (10/17/21) Hx of bariatric surgery Family & Social History Social History: household members spouse Tobacco & Substance use: Smoking Status Never smoker alcohol intake current alcohol intake frequency a few times a week Substance Use Type does not use Meds Home Medications and Allergies Home Medications Medication Instructions Recorded Confirmed Type acetaminophen 500 mg tablet 500 mg PO Q6H PRN 03/15/21 01/11/22 History (Tylenol Extra Strength) loratadine-pseudoephedrine ER 10 1 tab PO DAILY #30 tab 03/15/21 01/11/22 Rx mg-240 mg tablet,extended [id number] (Claritin-D 24 Hour) ascorbic acid (vitamin C) 1,000 mg 500 mg PO DAILY 10/17/21 01/11/22 History tablet (Vitamin C) cholecalciferol (vitamin D3) 50 50 mcg PO DAILY 10/17/21 01/11/22 History mcg (2,000 unit) tablet (Vitamin D3) echinacea 500 mg capsule 500 mg PO DAILY 10/17/21 01/11/22 History multivitamin 1 tab PO DAILY 10/17/21 01/11/22 History bilberry fruit 1,000 mg capsule 2,400 mg PO DAILY 01/11/22 01/11/22 History lutein 40 mg capsule 400 mg PO DAILY 01/11/22 01/11/22 History Allergies Allergy/AdvReac Type Severity Reaction Status Date / Time cat dander Allergy Severe Anaphylaxis Verified 01/11/22 08:32 nickel AdvReac Intermediate Verified 01/11/22 08:26 orange soap in OR Allergy Severe Rash Uncoded 11/20/21 12:58 Exam Vital Signs (past 8 hours): - 01/11/22 09:02 Temperature 97.4 F L Pulse Rate 64 Respiratory Rate 16 Blood Pressure 125/70 Pulse Oximetry 99 Oxygen Delivery Method Room Air Glucose POC: 223 Narrative Exam Narrative: HEENT: No thyromegaly, no anterior cervical or supraclavicular lymphadenopathy. Lungs:Clear to auscultation bilaterally, no wheezes. Cardiovascular: Regular rate and rhythm, no murmurs, rubs, or gallops. Abdomen: Well-healed laparoscopy scars. No hepatosplenomegaly. No masses palpable. External genitalia: Normal Vagina: Atrophic Cervix: Normal Bimanual exam: 8 Week size uterus. Mobile. No adnexal masses or tenderness Extremities: No edema Assessment & Plan Assessment & Plan narrative: Assessment: 71-year-old 2 para 2 with an enlarged fibroid uterus and postmenopausal bleeding Plan: Laparoscopic supracervical hysterectomy with bilateral salpingo-oophorectomy The risks, benefits, and alternatives to the procedure were explained to the patient. The risks including bleeding, infection, injury to the bowel, bladder, or ureters. She also understands that there is possibility of an open procedure. She understands all of these risks and agrees to proceed. A full par Q was held and consent form was signed. COVID-19 COVID-19 status: Negative Result date/Date tested (Pos, Neg/Pending): 01/10/22 Time Spent With Patient Time with patient: less than 30 minutes Critical Care time: I spent a total of [] minutes of critical care time on this patient's care today; this time is exclusive of procedural time.
--- NOTE | 2022-01-11 09:48 | PM.PREOP ---
Pre-operative Note COVID-19 COVID-19 status: Negative Result date/Date tested (Pos, Neg/Pending): 01/10/22 Criteria for continued procedure: Deterioration of the patient's condition or overall health and Non-surgical alternatives not available or appropriate per current SOC Interval Note History & Physical reviewed/Exam performed by Physician: Yes Changes to H&P: No H&P completed within 30 days and has changed as indicated here:: 01/11/22
[2022-01-11] MEDS: CEFAZOLIN 2 GM/20 ML SYRINGE IV (10:12)
--- NOTE | 2022-01-11 10:32 | SUR.OPER ---
Lithotomy on padded OR bed, head on pillow, arms padded and tucked at sides. Legs secured in padded yellow fins stirrups.
[2022-01-11] MEDS: BUPIVACAINE 0.5% W/ EPI (PF) 30 ML VIAL INJ (10:51)
[2022-01-11] MEDS: INSULIN REGULAR 100 UNIT/ML 3 ML VIAL 7 UNIT SUBCUT (10:52)
[2022-01-11] MEDS: ROPIVACAINE 0.2% PF 2 MG/ML 10ML AMP 20 ML INJ (10:52)
[2022-01-11] MEDS: OXYCODONE IR 5 MG TABLET PO ×3 (13:04→21:55)
[2022-01-11] MEDS: HYDROMORPHONE 2 MG INJ IV (13:17)
--- NOTE | 2022-01-11 13:44 | PM.GYNOP.1 ---
Operative Date/Time/Diagnoses Date of procedure: 01/11/22 Time of procedure: 12:45 Pre-op diagnosis: Enlarged fibroid uterus Postmenopausal bleeding Post-op diagnosis: same Procedure & Clinicians Procedure: Procedures Operation Date: 01/11/22 09:45 Actual Procedure Side Surgeon della Attempted Laparoscopic; Open Supracervical Hysterectomy with bilateral salpingo-oophorectomy Neha Ang MD Indications: Enlarged fibroid uterus Postmenopausal bleeding Surgeon: Neha Ang Occupational Health Nurse Manager: Tg Cortes Anesthesia Type: General and Local Operative Notes Findings: 12 week size multi fibroid uterus Adhesions of the omentum under the umbilicus Closure Type: primary Specimen(s): left tube & ovary, right tube & ovary and uterus Applied: catheter (To continuous drainage) Estimated blood loss (mL): 150 Blood products transfused: none Procedure in detail: The patient was taken to the operating room where she was placed in the dorsal supine position. After adequate general endotracheal anesthesia was achieved, she was placed in the dorsal lithotomy position, and prepped and draped in the usual sterile fashion. A time-out was performed. A bivalve speculum was placed into the vagina and the anterior lip of the cervix was grasped with a single-tooth tenaculum. The cervical os was sequentially dilated until the Zumi uterine manipulator could pass easily into the endometrial cavity. The single-tooth tenaculum was removed from the anterior lip of the cervix. The bivalve speculum was removed from the vagina. Attention was turned to the abdomen where 6 cc of 0.5% Marcaine with epinephrine were injected in the umbilical fold. A 1.5 cm incision was made. This was carried down to the fascia. The fascia was nicked in the midline and extended bilaterally. An attempt was made to identify the peritoneum but could not be visualized. With blunt probe with the finger tip there was felt to be a hard mass below the umbilicus. Due to the previous surgery and possible bowel adhesions stuck below the umbilicus, a decision was made to proceed with an open procedure. The patient was taken out of lithotomy. A Pfannenstiel incision was made 2 finger breaths above the pubic symphysis and carried through to the underlying layer of fascia. The fascia was nicked in the midline and the incision extended bilaterally with the Roldan scissors. The superior aspect of the fascial incision was grasped with the Beatriz clamps elevated and the underlying rectus muscles dissected off sharply and bluntly. Attention was then turned to the inferior aspect of this incision which in a similar fashion was grasped with the Beatriz clamps, elevated, and underlying rectus muscles dissected off sharply and bluntly. The rectus muscles were in the midline. The peritoneum was identified and grasped between 2 hemostats and entered sharply with the Metzenbaum scissors. This incision was extended superiorly and inferiorly with good visualization of the bladder. Palpation under the umbilicus revealed a large piece of omentum stuck to the anterior abdominal wall. No bowel was present. The O'Casper O'Dye retractor was placed into the incision and the bowel packed away with moist lap sponges. The bladder blade was inserted. The uterus was grasped with a 4 tooth tenaculum. The right round ligament was grasped between 2 Carolyn clamps, transected, and suture ligated with 0 Vicryl and tagged with a hemostat. The broad ligament was entered anteriorly and posteriorly. The infundibulopelvic ligament was identified doubly clamped with Claus clamps transected, free tied with 0 Vicryl and then suture ligated with 0 Vicryl. Hemostasis was achieved. The remainder of the broad ligament was taken down. The uterine arteries were skeletonized, doubly clamped, transected and suture ligated with 0 Vicryl. All of this was repeated on the patient's left side. Hemostasis was achieved. The Zumi uterine manipulator was removed from the uterus. The Bovie, the uterus was amputated from the cervix and handed off for specimen with the tubes and ovaries attached. The endocervical canal was cauterized with the Bovie. The cervical stump was closed with 4 simple interrupted sutures with 0 Vicryl. Hemostasis was achieved. The pelvis was copiously irrigated with warm normal saline. There was no bleeding noted. The instruments were removed from the abdomen. The retractor was removed from the incision. The lap sponges were removed from the abdomen. The peritoneum over the cervix was closed with 2 0 Vicryl in a running fashion. The parietal peritoneum was closed using 2 0 Vicryl in a running fashion. The fascia was closed with 0 Vicryl in a running fashion. The subcutaneous layer was copiously irrigated with warm normal saline. Six simple interrupted sutures with 3-0 Vicryl were placed to reapproximate. The skin was closed with 4-0 Monocryl in a subcuticular fashion. Steri-Strips were placed. An Aquacel dressing was placed. Sponge, lap, and instrument counts were correct x2. The patient tolerated the procedure well, and was taken to PACU in stable condition. Complications: none Post-operative Condition: stable Disposition: PACU Plan for aftercare: To acute care after recovery
[2022-01-11] MEDS: INSULIN REGULAR 100 UNIT/ML 3 ML VIAL SUBCUT ×2 (18:10→21:54)
[2022-01-11] MEDS: IBUPROFEN 600 MG TABLET PO (18:58)
--- NOTE | 2022-01-11 19:19 | PC.NURSE ---
A&Ox4. BP 148/60. All other vitals stable. 97% room air. Pain 8/10, given 5 mg oxy and scheduled ibuprofen. Ice pack on abdomen. Aquacel dressing with shadow drainage. Ana pad with minimal discharge. Huggins cath draining yellow urine. LR @ 100 PIV. SCDs on BLE. Ate a few crackers and some broth, tolerated well. Bowel tones hypoactive. No gas yet.
[2022-01-11] MEDS: DOCUSATE 100 MG CAPSULE 200 MG PO (21:55)
[2022-01-11] MEDS: ACETAMINOPHEN 325 MG TABLET 650 MG PO (22:03)
[2022-01-12] MEDS: LACTATED RINGERS 1,000 ML 100 ML IV (00:34)
[2022-01-12] MEDS: IBUPROFEN 600 MG TABLET PO ×3 (00:35→13:09)
[2022-01-12 00:45] VITALS: BP 134/54; PULSE 73; RESP 18; TEMP 37.4; O2SAT 98
[2022-01-12] MEDS: ACETAMINOPHEN 325 MG TABLET 650 MG PO ×3 (02:49→16:11)
[2022-01-12 04:44] LABS: Add Manual Diff / Slide Review NO; Basophils Absolute Auto 0 /uL (0-100); Basophils Percent Auto 0.1 % (0-2); Eosinophils Absolute Auto 0 /uL (0-450); Eosinophils Percent Auto 0.5 % (2-4); Hemoglobin 10.5 g/dL (12.0-16.0); Lymphocytes Absolute Auto 1600 /uL (1100-4500); Mean Corpuscular HGB Conc 32.9 % (30-36); Mean Corpuscular Hemoglobin 28.3 PG (26-34); Monocytes Absolute Auto 600 /uL (0-900); Monocytes Percent Auto 8.3 % (3-14); Neutrophils Absolute Auto 5100 /uL (1500-7000); Neutrophils Percent Auto 69.1 % (50-75); Platelet Count 150 X10^3/uL (150-400); Red Blood Cell Count 3.72 X10^6/uL (4.0-5.2); Red Cell Distribution Width 13.5 % (11.6-14.8); White Blood Cell Count 7.3 X10^3/uL (4.5-11.0)
[2022-01-12 04:50] LABS: BUN Creatinine Ratio 23.3 (6-22); Blood Urea Nitrogen 17 mg/dL (7-17); Carbon Dioxide 30 mmol/L (22-32); Chloride 101 mmol/L (98-107); Estimated Glomerular Filt Rate > 60.0 mL/min (>60); Glucose 192 mg/dL (80-110); HEMOLYSIS < 15 (0-50); Potassium 4.2 mmol/L (3.4-5.1); Sodium 131 mmol/L (137-145)
[2022-01-12 06:00] VITALS: BP 141/49; PULSE 71; RESP 14; TEMP 36.9; O2SAT 97
[2022-01-12 07:55] VITALS: BP 122/47; PULSE 66; RESP 16; TEMP 36.8; O2SAT 96
[2022-01-12] MEDS: INSULIN REGULAR 100 UNIT/ML 3 ML VIAL SUBCUT ×2 (08:15→13:09)
[2022-01-12] MEDS: DOCUSATE 100 MG CAPSULE 200 MG PO (08:15)
[2022-01-12 09:47] VITALS: O2SAT 96
[2022-01-12 11:50] VITALS: BP 134/53; PULSE 70; RESP 16; TEMP 36.7; O2SAT 97
--- NOTE | 2022-01-12 12:08 | CM.DANOTE ---
DCP: Case received, EMR reviewed and met with patient. Spouse, Ace, was at bedside. Was able to obtain information regarding patient's baseline activity status prior to hospitalization. DCP assessment completed with information currently available. Patient is a 71 year old female who admitted yesterday morning to the care of the [facility] team. PCP: Dr. Hewitt. Payer: confirmed: Medicare/[facility]. Patient came to the hospital via private vehicle for a surgical procedure. Patient was to have laparoscopic supracervical hysterectomy with bilteral salpingo-oophorectomy. Dr. Mckeon, OBGYN, came by the office and confirmed that this was an open surgery rather than laparoscopic, and she should go home tomorrow rather thabn today. Met with patient and spouse in the room. Patient was sitting up in bed, alert and oriented. They both reside here in [place]. She is independent at her baseline. P: DCP to continue to follow. Patient most likely will discharge tomorrow to home. Rianna Linares RN/Electromechanisms Design Drafter Discharge Planning/Care Management CM Discharge Assessment Start: 01/12/22 12:07 Freq: Status: Active Protocol: Document 01/12/22 12:07 (Rec: 01/12/22 12:08 [id number]) Discharge Planning Assessment Assigned Crocodile Farmer Rianna Linares RN/Electromechanisms Design Drafter Advance Directives? Yes Advance Directives on File No History Provided By Patient,Significant Other, Medical Record Household Members spouse Type of transporation used prior to Drives own vehicle admit Independent with ADL's Yes Is patient alert and oriented? Yes Caregiver for Another No Barriers to Discharge No Discharge Plan Home Transportation Arrangement Spouse Referrals Initiated None needed Whiteboard Updated in Patient Room with Yes name and ext. # of Crocodile Farmer Review Status In Process Next Review Type Continued Stay Review Pre-Anesthesia Assessment Start: 11/15/21 13:10 Freq: Status: Complete Protocol: Document 01/10/22 08:09 [facility] (Rec: 11/15/21 13:24 [facility] [id number]) Pre-Anesthesia Assessment Patient Information Reviewed Via Chart Review Comment COVID screen @ 01/11/22 Primary Care Provider Brook Ferreira Seen Specialist in Last 12 Months Yes Specialist Seen Emergency,Infant Childcare Provider Primary Language Luxembourger Hvac Journeyman Required No Height 5 ft 3 in Weight 210 lb Body Mass Index (BMI) 37.2 Barriers to Learning None Hx Anesthesia Reactions No Hx Family Anesthesia Reaction No Hx Malignant Hyperthermia No Hx Blood Transfusion Reaction No Anesthesia Review Requested No Vehicle Detailer No alcohol intake current alcohol intake frequency a few times a week Smoking Status Never smoker Substance Use Type does not use Patient is completely paralyzed or No completely immobile Mental Status Oriented to own ability Hx Sleep Apnea No CPAP/BIPAP use not prescribed Currently Taking a Beta Nae No Anti-Coagulant Therapy No Cardiac Testing No Hx Pacemaker/ICD No Pacemaker Rep Required? No Cardiac Clearance Received Not Applicable Urinary Catheter Present No Hx Urinary Self Catheterization No Diabetes Yes Patient No Lactating No Presence of External or Internal Medical No Devices Received a COVID vaccine? Yes Received all doses? Yes Marital Status Lives With spouse Patient Discharge Plan Description Return Home Advance Directives? Yes
--- NOTE | 2022-01-12 17:30 | PC.NURSE ---
Pt discharged at 1730, escorted off floor in wheelchair accompanied by hospital staff. IV removed, discharge teaching reviewed including follow up appointment next week and medication regimen until then. Questions answered. All belongings left room with patient.
--- NOTE | 2022-01-13 16:10 | P.DS_ITS ---
History of Present Illness History of Present Illness Date Patient Seen: 01/12/22 Time Patient Seen: 16:00 Chief complaint: [facility] BSO *OPB* Narrative: Patient is a 71-year-old 2 para 2 who presented on January 11, 2022 for a scheduled laparoscopic supracervical hysterectomy. Laparoscopy was attempted but unable. She underwent an open abdominal supracervical hysterectomy with bilateral salpingo-oophorectomy without complication. On postop day # 1 the catheter was removed and she voided without difficulty. Her pain was well controlled. She was tolerating a diet. No nausea or vomiting. She is discharged home on postop day # 1. Discharge Providers Provider Date of admission: 01/12/22 12:04 Discharge Date: 01/12/22 Primary care physician: Sebastien Hewitt DO Discharge provider: Neha Ang MD Summary Hospital Course Discharge Diagnosis: Enlarged fibroid uterus Postmenopausal bleeding Omental to anterior abdominal wall adhesions Attempted laparoscopy Abdominal supracervical hysterectomy with bilateral salpingo-oophorectomy Hospital Course: Patient is a 71 year old 2 para 2 who presented on January 11, 2022 for a scheduled laparoscopic supracervical hysterectomy. Laparoscopy was attempted, but unable due to adhesions. She underwent an open abdominal supracervical hysterectomy with bilateral salpingo-oophorectomy without complication. Her postoperative course was unremarkable. She was able to void without the catheter on postop day # 1. She tolerated a diet. She was passing flatus. No nausea or vomiting. Pain well controlled. She is discharged home on postop day # 1. Status at Discharge Cognitive/behavioral status at discharge: oriented Functional status at discharge: independent ambulation Overall status at discharge: patient is progressing back to baseline Time Spent with Patient Time spent: Less than 30 minutes Exam Vital Signs (past 8 hours): Oxygen Delivery Method Room Air Oxygen Flow Rate 0 Narrative Exam Narrative: Generally: Patient is sitting up in bed, no acute distress Lungs: Clear to auscultation bilaterally Cardiovascular: Regular rate and rhythm Abdomen: Soft and flat. Good bowel sounds in all 4 quadrants. Incision: Clean dry and intact with Aquacel dressing. Extremities: Negative Homans, trace edema Objective Labs Result Diagrams: 01/12/22 04:17 01/12/22 04:17 [facility] Medical History Diabetes Diabetic retinopathy, nonproliferative Glucosuria Injection of surface of left eye (09/16/20) Retinal degeneration Seasonal allergies Surgical History (Updated 01/11/22 @ 08:32 by Anusha Brunson RN) Cataract extraction status, left eye (11/18/15) History of hysteroscopy (10/17/21) Hx of bariatric surgery Social History household members: spouse Smoking Status: Never smoker alcohol intake: current Discharge Assessment & Plan Assessment and Plan Assessment: Postop day # 1 status post abdominal supracervical hysterectomy with bilateral salpingo-oophorectomy Patient doing very well Desires discharge Plan of Treatment: Discharged home Follow-up in 1 week for Aquacel dressing removal Patient to call with fever, chills, redness or drainage around the incision, or bleeding vaginally more than spotting Discharge Plan Discharge Plan Patient Disposition: Home Provider Discharge Comment: Call with fever, chills, or redness or drainage around the incisions. Tylenol 650 mg every 6 hours Ibuprofen 600 mg every 6 hours Colace once or twice a day as needed until bowels return to normal Antibiotics if develops symptoms of UTI Discharge orders & Medications Prescriptions: New oxycodone 5 mg tablet 5 mg PO Q4H PRN (Reason: pain) Qty: 30 0RF nitrofurantoin macrocrystal 100 mg capsule 100 mg PO BID Qty: 10 0RF Rx Instructions: must administer with a meal/food Continued loratadine-pseudoephedrine [Claritin-D 24 Hour] 10-240 mg tablet extended release 24 hr 1 tab PO DAILY Qty: 30 0RF multivitamin Tablet 1 tab PO DAILY 0RF ascorbic acid (vitamin C) [Vitamin C] 1,000 mg Tablet 500 mg PO DAILY 0RF echinacea 500 mg Capsule 500 mg PO DAILY 0RF Rx Instructions: administer with meals cholecalciferol (vitamin D3) [Vitamin D3] 50 mcg (2,000 unit) Tablet 50 mcg PO DAILY 0RF bilberry fruit 1,000 mg Capsule 2,400 mg PO DAILY 0RF lutein 40 mg Capsule 400 mg PO DAILY 0RF Rx Instructions: administer with meals Discontinued acetaminophen [Tylenol Extra Strength] 500 mg tablet 500 mg PO Q6H PRN (Reason: Pain) 0RF Follow up/Referrals: Neha Ang MD [Physician] - 1 Week Diet/Activity/Treatments Diet: Regular Activity: No heavy lifting, nothing more than a gallon of milk Skin/Wound/Dressing Care Report to your healthcare provider any signs of infection, such as:: chills, fever, increased pain, unusual drainage and unusual redness Dressing: May remove umbilical dressing on Saturday after a shower, leave Steri- Strips in place Do not remove lower brown dressing until seen in the office next week Visit Report/Discharge Packet Instructions: DI for Hysterectomy, DI for Prescription Opioid Use Stand Alone Forms: Surgery Discharge Discharge Data Primary Care Provider: Sebastien Hewitt
== END 2022-01-12 17:30 | disposition home or self-care (01) | DRG 743 ==
LOC: OR 12:18 → AC 12:18
PROVIDERS: Admitting Provider Obstetrics & Gynecology; PCP Family Medicine; Referring Provider Obstetrics & Gynecology; Visit Provider Obstetrics & Gynecology
PROC: 0UT94ZL Resection of Uterus, Supracervical, Percutaneous Endoscopic Approach (ICD-10-PCS; principal; 2022-01-11 09:45)
DX: D25.9 Leiomyoma of uterus, unspecified (principal); N95.0 Postmenopausal bleeding; K66.0 Peritoneal adhesions (postprocedural) (postinfection); Z20.822 Contact with and (suspected) exposure to COVID-19
CPT/HCPCS: 36415; 58180; 80048; 82962; 85025; 87635; C9803; J0690; J1170; J2405; J2704; J2765; J2795; J3010

== ENCOUNTER → 2022-07-30 06:59 | Outpatient (CLI) | payer MEDICARE, OTHER, SELFPAY ==
[2022-01-11 08:11] VITALS: BMI 37.2
[2022-07-30 08:20] LABS: Add Manual Diff / Slide Review NO; Basophils Absolute Auto 0 /uL (0-100); Basophils Percent Auto 0.4 % (0-2); Eosinophils Absolute Auto 200 /uL (0-450); Eosinophils Percent Auto 2.8 % (2-4); Hematocrit 35.7 % (36-46); Hemoglobin 11.9 g/dL (12.0-16.0); Lymphocytes Absolute Auto 1400 /uL (1100-4500); Lymphocytes Percent Auto 24.3 % (25-40); Mean Corpuscular HGB Conc 33.3 % (30-36); Mean Corpuscular Hemoglobin 27.6 PG (26-34); Mean Corpuscular Volume 82.7 fL (80-100); Monocytes Absolute Auto 400 /uL (0-900); Monocytes Percent Auto 7.6 % (3-14); Neutrophils Absolute Auto 3800 /uL (1500-7000); Neutrophils Percent Auto 64.9 % (50-75); Platelet Count 193 X10^3/uL (150-400); Red Blood Cell Count 4.32 X10^6/uL (4.0-5.2); Red Cell Distribution Width 14.3 % (11.6-14.8); White Blood Cell Count 5.8 X10^3/uL (4.5-11.0)
[2022-07-30 08:39] LABS: Alanine Aminotransferase 14 IU/L (<35); Albumin 3.6 g/dL (3.5-5.0); Albumin Globulin Ratio 1.2 (1.0-2.8); Alkaline Phosphatase 130 U/L (38-126); Aspartate Aminotransferase 19 IU/L (14-36); BUN Creatinine Ratio 20.8 (6-22); Bilirubin Total 0.6 mg/dL (0.2-1.3); Blood Urea Nitrogen 16 mg/dL (7-17); Calcium 8.7 mg/dL (8.4-10.2); Carbon Dioxide 29 mmol/L (22-32); Chloride 100 mmol/L (98-107); Cholesterol 176 mg/dL (140-199); Estimated Glomerular Filt Rate > 60 mL/min (>60); Glucose 289 mg/dL (80-110); HDL Cholesterol 64 mg/dL (40-60); HEMOLYSIS < 15 (0-50); LDL Cholesterol Calculated 97 mg/dL (<100); Potassium 4.5 mmol/L (3.4-5.1); Sodium 136 mmol/L (137-145); Total Protein 6.6 g/dL (6.3-8.2); Triglycerides 73 mg/dL (35-150)
[2022-07-30 09:28] LABS: Vitamin B12 487 pg/mL (239-931)
[2022-07-30 16:49] LABS: Vitamin D 25 Hydroxy (D3) 25.7 ng/mL (30.0-100.0)
[2022-07-31 16:52] LABS: Fecal Immunochemical Test Negative (Negative)
[2022-08-02 21:48] LABS: Vitamin B6 40.4 ug/L (3.4-65.2)
[2022-08-03 08:31] LABS: Vitamin C 0.7 mg/dL (0.4-2.0)
[2022-08-07 23:23] LABS: Vitamin A 42.8 ug/dL (22.0-69.5)
== END ==
PROVIDERS: PCP Family Medicine; Referring Provider Family Medicine; Visit Provider Family Medicine
DX: Z98.84 Bariatric surgery status (principal); Z12.11 Encounter for screening for malignant neoplasm of colon; Z13.9 Encounter for screening, unspecified; E55.9 Vitamin D deficiency, unspecified; D64.9 Anemia, unspecified
CPT/HCPCS: 36415; 80053; 80061; 82180; 82274; 82306; 82607; 84207; 84590; 85025

== ENCOUNTER → 2022-09-12 08:28 | Outpatient (CLI) | payer MEDICARE, OTHER, SELFPAY ==
[2022-01-11 08:11] VITALS: BMI 37.2
--- NOTE | 2022-09-12 08:31 | DI.MG.S_ITS ---
BILATERAL DIGITAL SCREENING MAMMOGRAM 3D/2D WITH CAD: 09/12/2022 CLINICAL: Routine screening. Comparison is made to exam dated: 11/13/2011 mammogram - outside location. There are scattered areas of fibroglandular density in both breasts (category b / 25%-50% glandular tissue). Current study was also evaluated with a Computer Aided Detection (CAD) system. No significant masses, calcifications, or other findings are seen in either breast. There has been no significant interval change. IMPRESSION: NEGATIVE There is no mammographic evidence of malignancy. A 1 year screening mammogram is recommended. Based on the Tyrer Cuzick model (a risk assessment model) the patient's lifetime risk is 4.3% and her 10 year risk is 3.2%. According to the ACR, ACS, and NCCN guidelines, an annual breast MRI exam along with mammogram is recommended if the patient's lifetime risk is 20% or greater. This exam was interpreted at Station ID: [id number]. NOTE: For mammograms, a report in lay terms will be sent to the patient. Approximately 15% of breast malignancies will not be visualized mammographically. In the management of a palpable breast mass, a negative mammogram must not discourage biopsy of a clinically suspicious lesion. Electronically Signed By: Gayathri mei/frederic:09/12/2022 09:11:50 letter sent: Normal Exam ACR BI-RADS Category 1: Negative [id number]
== END ==
PROVIDERS: PCP Family Medicine; Referring Provider Family Medicine; Visit Provider Family Medicine
DX: Z12.31 Encounter for screening mammogram for malignant neoplasm of breast (principal)
CPT/HCPCS: 77063; 77067

== ENCOUNTER 2023-09-29 08:05 | Emergency (ER) | payer MEDICARE, OTHER, SELFPAY ==
[2022-01-11 08:11] VITALS: BMI 37.2
[2023-09-29 08:10] VITALS: BP 148/71; PULSE 62; RESP 18; TEMP 36.3; O2SAT 95; BMI 34.2
--- NOTE | 2023-09-29 09:55 | PC.NURSE ---
Pt states that she saw the dentist on saturday to have a filling fixed and since then she has been feeling intense throbbing pain on the left side of her face. pt rates pain as a 10/10 and has plans with dentist to continue with repairing the cracked filling. pt has been managing pain with tylenol and states that the pain has just become too intense.
--- NOTE | 2023-09-29 10:03 | ED_ITS ---
HPI - Dental/Oral General Chief complaint: Dental/Oral Stated complaint: Tooth filling fell out/ pain in mouth Time Seen by Provider: 09/29/23 09:54 Source: patient Mode of arrival: Ambulatory History of Present Illness HPI Narrative: Patient is a 73-year-old female without significant past medical history presenting today with ongoing dental pain. She reports that last week she had pain in tooth 15. She got into see her dentist it was determined there was something wrong with feeling he put a temporary filling and she says that it was doing well until 3 days ago. She now says that she has nerve pain is going up into her ear is very painful. No fever or chills. She was taking Tylenol but it is not helping. She is no significant facial swelling or redness. She says that ibuprofen does not work for her because it makes her very angry. She has not tried naproxen Aleve or other NSAIDs. Related Data Home Medications Medication Instructions Recorded Confirmed ascorbic acid (vitamin C) 1,000 mg 500 mg PO DAILY 10/17/21 12/25/22 tablet (Vitamin C) cholecalciferol (vitamin D3) 50 50 mcg PO DAILY 10/17/21 12/25/22 mcg (2,000 unit) tablet (Vitamin D3) echinacea 500 mg capsule 500 mg PO DAILY 10/17/21 12/25/22 bilberry fruit 1,000 mg capsule 2,400 mg PO DAILY 01/11/22 12/25/22 lutein 40 mg capsule 400 mg PO DAILY 01/11/22 12/25/22 melatonin 3 mg capsule 3 mg PO BEDTIME PRN 12/25/22 12/25/22 Previous Rx's Medication Instructions Recorded loratadine-pseudoephedrine ER 10 1 tab PO DAILY #30 tabs 03/15/21 mg-240 mg tablet,extended [id number] (Claritin-D 24 Hour) sulfamethoxazole 800 1 tab PO Q12H #10 tabs 02/15/22 mg-trimethoprim 160 mg tablet (Bactrim DS) amoxicillin 500 mg tablet 500 mg PO TID #15 tabs 12/20/22 amoxicillin 875 mg-potassium 1 tab PO BID #14 tabs 09/29/23 clavulanate 125 mg tablet hydrocodone 5 mg-acetaminophen 325 1 tab PO Q6H PRN pain #10 tabs 09/29/23 mg tablet Allergies Allergy/AdvReac Type Severity Reaction Status Date / Time cat dander Allergy Severe Anaphylaxis Verified 12/25/22 09:02 nickel AdvReac Intermediate Verified 12/25/22 09:02 orange soap in OR Allergy Severe Rash Uncoded 12/25/22 09:02 Patient History Medical History (Updated 09/29/23 @ 10:19 by Lena Green DO) Vitamin D deficiency Medicare annual wellness visit, subsequent Stress incontinence Bilateral shoulder pain Shoulder pain Wrist pain (~2010) Injection of surface of left eye (09/16/20) Diabetic retinopathy, nonproliferative Diabetes Seasonal allergies Glucosuria Retinal degeneration Surgical History (Updated 07/19/22 @ 10:33 by Celio Hewitt DO) Hx of bariatric surgery Anesthesia History of hysterectomy (~01/11/22) History of removal of cyst (~2013) Status post wrist surgery (~2010) Hx of bariatric surgery Cataract extraction status, left eye (11/18/15) History of hysteroscopy (10/17/21) Family History Father Cancer History of heart disease Stroke Mother Bladder infection Brother History of heart disease Grandfather Cancer Grandmother Stroke Grandfather Alcoholism Grandmother History of cholecystectomy Family/Other Multiple sclerosis Social History household members: spouse Smoking Status: Never smoker alcohol intake: current Smoking Status: Never smoker alcohol intake frequency: a few times a week Substance Use Type: does not use Exam Initial Vital Signs Initial Vital Signs: Vital Signs Temperature 97.3 F L 09/29/23 08:10 Pulse Rate 62 09/29/23 08:10 Respiratory Rate 18 09/29/23 08:10 Blood Pressure 148/71 H 09/29/23 08:10 Pulse Oximetry 95 09/29/23 08:10 Oxygen Delivery Method Room Air 09/29/23 08:10 GENERAL: Well-appearing, well-nourished and in no acute distress.' FACE: No facial swelling no erythema CARDIOVASCULAR: peripheral pulses in tact, cap refill <2 sec RESPIRATORY: No respiratory distress, speaks in full sentences without difficulty EXTREMITIES: Normal range of motion, no clubbing or edema. Neurovascularly intact NEUROLOGICAL: Cranial nerves II through XII grossly intact. Normal gait and speech. SKIN: Warm, dry, no petechiae, no rashes or lesions. [facility] Adult Head Mouth w/Numbe Teeth: [address] no obvious dental abscess no swelling no cracks Course Orders Ordered: Discontinued Medications Hydrocodone Bitart/Acetaminophen (Hydrocodone/Acet 5/325 Tablet) 1 tab PO NOW ONE Stop: 09/29/23 10:04 Last Admin: 09/29/23 10:12 Dose: 1 tab Documented By: NAHED Vital Signs Vital signs: Vital Signs - 8 hr 09/29/23 08:10 09/29/23 10:30 Temperature 97.3 F L Pulse Rate 62 60 Respiratory Rate 18 18 Blood Pressure 148/71 H 136/63 Pulse Oximetry 95 98 Oxygen Delivery Method Room Air Room Air MDM - Dental/Oral MDM Narrative Medical decision making narrative: At this time patient is having ongoing dental pain. No obvious erythema dental abscess or infection but will go ahead and start antibiotics. She is wanting something stronger for pain she is been taking Tylenol without any relief. We discussed option of trying a lever naproxen. Happy to give her some [place]. Encouraged her to follow up with her dentist. Discharge Plan Departure Patient Disposition: Home Clinical Impression: Pain, dental Instructions: DI for Dental Pain Activity Restrictions/Additional Instructions: *You have been diagnosed with dental pain *What to do: At this time please call your dentist as scheduled follow-up appointment. *Continue to take medications as directed Augmentin 875 mg twice a day for 7 days [place] 1 tablet every 6 hours if needed for severe pain Naproxen 500 mg every 12 hours if needed for atxf-pr-[id number] pain *Follow up with your primary care provider in 2-3 days or call [phone] *Return to ER if you should have increasing facial swelling pain redness difficulty swallowing or any new, worsening or concerning symptoms CONTROLLED SUBSTANCE DISCHARGE (Narcotoic/benzodiazepine/Flexeril/Phenergan) 1. You have been prescribed narcotic medications, it does have acetaminophen/Tylenol/paracetamol in it, DO NOT TAKE MORE THAN 4,00mg in 24 hours of Tylenol. TRAMADOL DOES NOT CONTAIN TYLENOL 2. Please understand that we cannot provide further refills of narcotics, benzodiazepines or controlled substances through the ED and her pain management will need to be through your provider. 3. While on these medications you cannot drive or operate heavy machinery. 4. You cannot sign legal documents or perform any duties such as this. 5. As long as you're taking opiate pain medications he should also be taking a stool softener such as Colace, Dulcolax, MiraLAX or prune juice, to help avoid constipation. Prescriptions: New amoxicillin-pot clavulanate 875-125 mg tablet 1 tab PO BID Qty: 14 0RF hydrocodone-acetaminophen 5-325 mg tablet 1 tab PO Q6H PRN (Reason: pain) Qty: 10 0RF No Action sulfamethoxazole-trimethoprim [Bactrim DS] 800-160 mg tablet 1 tab PO Q12H Qty: 10 0RF amoxicillin 500 mg tablet 500 mg PO TID Qty: 15 3RF loratadine-pseudoephedrine [Claritin-D 24 Hour] 10-240 mg tablet extended release 24 hr 1 tab PO DAILY Qty: 30 0RF melatonin 3 mg capsule 3 mg PO BEDTIME PRN Rx Instructions: Sugarfree ascorbic acid (vitamin C) [Vitamin C] 1,000 mg Tablet 500 mg PO DAILY echinacea 500 mg Capsule 500 mg PO DAILY Rx Instructions: administer with meals cholecalciferol (vitamin D3) [Vitamin D3] 50 mcg (2,000 unit) Tablet 50 mcg PO DAILY bilberry fruit 1,000 mg Capsule 2,400 mg PO DAILY lutein 40 mg Capsule 400 mg PO DAILY Rx Instructions: administer with meals Referrals: Celio Hewitt DO [Primary Care Provider] - Stand Alone Forms: Patient Portal/API
[2023-09-29] MEDS: HYDROCODONE/ACET 5/325 TABLET 1 TAB PO (10:12)
[2023-09-29 10:30] VITALS: BP 136/63; PULSE 60; RESP 18; O2SAT 98
== END 2023-09-29 10:31 | disposition home or self-care (01) ==
PROVIDERS: Emergency Provider Emergency Medicine; PCP Family Medicine
DX: K08.89 Other specified disorders of teeth and supporting structures (principal)
CPT/HCPCS: 99283

== ENCOUNTER → 2023-10-28 07:56 | Outpatient (CLI) | payer MEDICARE, OTHER, SELFPAY ==
[2022-01-11 08:11] VITALS: BMI 37.2
[2023-10-28 08:32] LABS: Appearance Urine UA SL CLOUDY; Bilirubin Urine UA NEGATIVE (NEGATIVE); Color Urine UA YELLOW; Glucose Urine UA 3+ g/dL (Negative); Ketones Urine UA NEGATIVE (NEGATIVE); Leukocyte Esterase Urine UA 1+ (NEGATIVE); Nitrite Urine UA POSITIVE (Negative); Occult Blood Urine UA NEGATIVE (Negative); Protein Urine UA NEGATIVE (Negative); Specific Gravity Urine UA 1.015 (1.000-1.035)
[2023-10-28 08:33] LABS: pH Urine UA 5.5 (4.5-8.0)
[2023-10-28 08:39] LABS: Bacteria Urine Many (>30); RBC Urine None Seen (0-5/HPF); Squamous Epithelial Cell Urine 1-5 /HPF (0-5/HPF); WBC Urine 10-30/HPF (0-5/HPF)
[2023-10-28 08:40] LABS: Culture Indicated Urine Cult Not Indicated
== END ==
PROVIDERS: PCP Family Medicine; Referring Provider Obstetrics & Gynecology; Visit Provider Obstetrics & Gynecology
DX: N39.0 Urinary tract infection, site not specified (principal)
CPT/HCPCS: 81001

== ENCOUNTER → 2023-10-29 10:48 | Outpatient (CLI) | payer MEDICARE, OTHER, SELFPAY ==
[2022-01-11 08:11] VITALS: BMI 37.2
== END ==
PROVIDERS: PCP Family Medicine; Visit Provider Obstetrics & Gynecology
DX: N30.01 Acute cystitis with hematuria (principal)
CPT/HCPCS: 87077; 87086; 87186

== ENCOUNTER → 2023-11-20 12:15 | Outpatient (CLI) | payer MEDICARE, OTHER, SELFPAY ==
[2022-01-11 08:11] VITALS: BMI 37.2
== END ==
PROVIDERS: PCP Family Medicine; Visit Provider Obstetrics & Gynecology
DX: N39.0 Urinary tract infection, site not specified (principal)
CPT/HCPCS: 87077; 87086; 87186

== ENCOUNTER → 2024-01-21 06:55 | Outpatient (CLI) | payer MEDICARE, OTHER, SELFPAY ==
[2022-01-11 08:11] VITALS: BMI 37.2
[2024-01-21 07:32] LABS: Add Manual Diff / Slide Review NO; Basophils Absolute Auto 0 /uL (0-100); Basophils Percent Auto 0.4 % (0-2); Eosinophils Absolute Auto 100 /uL (0-450); Eosinophils Percent Auto 0.9 % (2-4); Hematocrit 35.1 % (36-46); Hemoglobin 11.6 g/dL (12.0-16.0); Lymphocytes Absolute Auto 1100 /uL (1100-4500); Lymphocytes Percent Auto 13.5 % (25-40); Mean Corpuscular HGB Conc 33.1 % (30-36); Mean Corpuscular Hemoglobin 28.1 PG (26-34); Mean Corpuscular Volume 84.8 fL (80-100); Monocytes Absolute Auto 900 /uL (0-900); Monocytes Percent Auto 10.2 % (3-14); Neutrophils Absolute Auto 6300 /uL (1500-7000); Platelet Count 234 X10^3/uL (150-400); Red Blood Cell Count 4.14 X10^6/uL (4.0-5.2); Red Cell Distribution Width 14.9 % (11.6-14.8); White Blood Cell Count 8.4 X10^3/uL (4.5-11.0)
[2024-01-21 08:15] LABS: Vitamin D 25 Hydroxy (D3) 33.9 ng/mL (30.0-100.0)
[2024-01-21 09:19] LABS: Creatinine Urine Random 43.5 mg/dL
[2024-01-21 09:24] LABS: Microalbumi Creatinin Ratio Ur 52.8 ug/mg CR (<30); Microalbumin Urine Random 2.3 mg/dL (0-1.6)
[2024-01-21 11:10] LABS: Alanine Aminotransferase 14 IU/L (<35); Albumin 3.3 g/dL (3.5-5.0); Albumin Globulin Ratio 1.1 (1.0-2.8); Alkaline Phosphatase 97 U/L (38-126); Aspartate Aminotransferase 19 IU/L (14-36); BUN Creatinine Ratio 23.5 (6-22); Bilirubin Total 0.6 mg/dL (0.2-1.3); Blood Urea Nitrogen 24 mg/dL (7-17); Calcium 8.8 mg/dL (8.4-10.2); Carbon Dioxide 27 mmol/L (22-32); Chloride 95 mmol/L (98-107); Cholesterol 159 mg/dL (140-199); Estimated Glomerular Filt Rate 58 mL/min (>60); Glucose 409 mg/dL (80-110); HDL Cholesterol 49 mg/dL (40-60); HEMOLYSIS < 15 (0-50); LDL Cholesterol Calculated 89 mg/dL (<100); Potassium 4.7 mmol/L (3.4-5.1); Sodium 128 mmol/L (137-145); Total Protein 6.3 g/dL (6.3-8.2); Triglycerides 105 mg/dL (35-150)
[2024-01-21 11:34] LABS: Free T4, Direct Thyroxine 1.97 ng/dL (0.78-2.19)
[2024-01-21 11:47] LABS: Follicle Stimulating Hormone 43.3 mIU/mL
[2024-01-21 11:57] LABS: Hemoglobin A1C% w Est Avg Glu 12.6 % (4.0-6.0)
[2024-01-21 12:04] LABS: Estradiol, Total 40.8 pg/mL
[2024-01-21 12:05] LABS: Vitamin B12 491 pg/mL (239-931)
== END ==
PROVIDERS: Obstetrics & Gynecology; PCP Family Medicine; Referring Provider Family Medicine; Visit Provider Family Medicine
DX: E11.9 Type 2 diabetes mellitus without complications; E55.9 Vitamin D deficiency, unspecified; Z98.84 Bariatric surgery status
CPT/HCPCS: 36415; 80053; 80061; 82043; 82306; 82570; 82607; 82670; 83001; 83036; 84439; 85025

== ENCOUNTER → 2024-01-22 09:13 | Outpatient (CLI) | payer MEDICARE, OTHER, SELFPAY ==
[2022-01-11 08:11] VITALS: BMI 37.2
[2024-01-22 10:01] LABS: Thyroid Stimulating Hormone 3.06 uIU/mL (0.47-4.68)
== END ==
PROVIDERS: PCP Family Medicine; Visit Provider Obstetrics & Gynecology
DX: N95.1 Menopausal and female climacteric states (principal)
CPT/HCPCS: 84443

== ENCOUNTER 2024-01-28 19:07 | Inpatient (IN) | payer MEDICARE, OTHER, SELFPAY ==
[2022-01-11 08:11] VITALS: BMI 37.2
[2024-01-28] VITALS (8 sets, daily range): BP systolic 118–190; BP diastolic 57–86; PULSE 47–69; RESP 17–20; TEMP 36.2–36.4; O2SAT 94–99; BMI 34.0
[2024-01-28 20:26] LABS: Bacteria Urine Moderate (10-30); Mucus Urine 1+ (Negative); RBC Urine 1-5/HPF (0-5/HPF); Squamous Epithelial Cell Urine 1-5 /HPF (0-5/HPF); Urine Volume Low Vol <1mL unspun
[2024-01-28 20:27] LABS: Culture Indicated Urine Specimen Cultured; WBC Urine 5-10/HPF (0-5/HPF)
[2024-01-28] MEDS: ONDANSETRON 4 MG ODT SL (20:55)
[2024-01-28 21:38] LABS: Add Manual Diff / Slide Review NO; Basophils Absolute Auto 0 /uL (0-100); Basophils Percent Auto 0.4 % (0-2); Eosinophils Absolute Auto 0 /uL (0-450); Eosinophils Percent Auto 0.2 % (2-4); Lymphocytes Absolute Auto 1000 /uL (1100-4500); Lymphocytes Percent Auto 7.8 % (25-40); Mean Corpuscular HGB Conc 32.5 % (30-36); Mean Corpuscular Hemoglobin 27.3 PG (26-34); Mean Corpuscular Volume 83.9 fL (80-100); Monocytes Absolute Auto 600 /uL (0-900); Monocytes Percent Auto 4.4 % (3-14); Neutrophils Absolute Auto 11100 /uL (1500-7000); Neutrophils Percent Auto 87.2 % (50-75); Platelet Count 272 X10^3/uL (150-400); Red Blood Cell Count 4.41 X10^6/uL (4.0-5.2); Red Cell Distribution Width 14.6 % (11.6-14.8); White Blood Cell Count 12.7 X10^3/uL (4.5-11.0)
[2024-01-28 21:46] LABS: Alanine Aminotransferase 19 IU/L (<35); Albumin 3.8 g/dL (3.5-5.0); Albumin Globulin Ratio 1.2 (1.0-2.8); Alkaline Phosphatase 101 U/L (38-126); Aspartate Aminotransferase 27 IU/L (14-36); BUN Creatinine Ratio 25.7 (6-22); Bilirubin Total 0.7 mg/dL (0.2-1.3); Blood Urea Nitrogen 26 mg/dL (7-17); Calcium 9.2 mg/dL (8.4-10.2); Carbon Dioxide 25 mmol/L (22-32); Chloride 97 mmol/L (98-107); Estimated Glomerular Filt Rate 59 mL/min (>60); Globulin 3.3 g/dL (1.7-4.1); HEMOLYSIS < 15 (0-50); Sodium 129 mmol/L (137-145); Total Protein 7.1 g/dL (6.3-8.2)
[2024-01-28 21:47] LABS: Potassium 5.5 mmol/L (3.4-5.1)
[2024-01-28 21:48] LABS: Glucose 585 mg/dL (80-110)
[2024-01-28] MEDS: SODIUM CHLORIDE 0.9% 1,000 ML 1000 ML IV (22:10)
--- NOTE | 2024-01-28 22:11 | DI.CT.S_ITS ---
PROCEDURE: CT KIDNEY URETER BLADDER (KUB) INDICATIONS: right flank pain TECHNIQUE: Axial sections were acquired from the lung bases to the pubic symphysis. Coronal and sagittal reformats were performed. For radiation dose reduction, the following was used: automated exposure control, adjustment of mA and/or kV according to patient size. COMPARISON: [facility], CT, CT ABDOMEN PELVIS W CON, 08/17/2021, 11:29. FINDINGS: Image quality: Diagnostic. Lower Chest: No significant findings. URINARY: Right Kidney: Right kidney appears mildly enlarged and edematous with perinephric fat stranding and moderate hydronephrosis. Right Ureter: Right proximal ureteral calculus is seen near the ureteropelvic junction measuring 11 mm in maximum dimension (1200 Hounsfield units). Left Kidney: No stones or hydronephrosis. Left Ureter: No hydroureter. Bladder: Normal wall thickness. No stones. ABDOMEN: Liver: No contour-deforming solid mass. Gallbladder: Small dependent calcified gallstones are present. No acute inflammatory changes. Biliary ducts: No biliary dilation. Pancreas: No ductal dilation. Spleen: Size is within normal limits. Adrenal Glands: No adrenal nodules. Stomach and Bowel: Postsurgical changes from prior gastric bypass surgery. Small bowel loops are unremarkable. Moderate colonic stool. Normal appendix. Peritoneum: No abnormal intraperitoneal fluid. No free air. Ventral Wall: No hernia. Abdominal Nodes: No enlarged retroperitoneal or mesenteric lymph nodes. Vessels: Aorta and inferior vena cava are normal in size. PELVIS: Pelvic Organs: Unremarkable. Pelvic Nodes: Unremarkable. Miscellaneous: No inguinal hernias are seen. Bones: Degenerative changes are seen in the included spine. IMPRESSION: Right proximal ureteral 11 mm calculus at the ureteropelvic junction with moderate right hydronephrosis and perinephric fat stranding. Approved by: Carl Swartz M.D. on 01/29/2024 at 0:02
[2024-01-28 22:13] LABS: Hemoglobin A1C% w Est Avg Glu 12.8 % (4.0-6.0)
[2024-01-28] MEDS: KETOROLAC 30 MG/ML VIAL 15 MG IV (22:21)
[2024-01-28] MEDS: cefTRIAXone 1,000 MG in SODIUM CHLORIDE 0.9% 100 ML 200 MG IV (22:43)
[2024-01-29] VITALS (21 sets, daily range): BP systolic 90–128; BP diastolic 35–59; PULSE 61–91; RESP 12–20; TEMP 36.2–37.1; O2SAT 94–99; BMI 34.0
--- NOTE | 2024-01-29 | DI.RAD.S_ITS ---
PROCEDURE: XR ABDOMEN 1V INDICATIONS: STENT TECHNIQUE: One intra-operative image acquired by the Urology service. COMPARISON: [facility], CT, CT KIDNEY URETER BLADDER (KUB), 01/28/2024, 22:24. FINDINGS: Single intraoperative image demonstrates the proximal end of a right ureteral stent projecting over the right paraspinal region. IMPRESSION: Fluoroscopic intraoperative guidance was utilized during ureteral stent placement. Approved by: Carl Swartz M.D. on 01/29/2024 at 21:19
--- NOTE | 2024-01-29 00:40 | ED_ITS ---
HPI - Abdominal Pain General Chief Complaint: Urogenital-Female Stated Complaint: poss. kidney stone painful Time Seen by Provider: 01/28/24 21:27 Source: patient and family Mode of arrival: Ambulatory History of Present Illness HPI narrative: Patient is a 73-year-old female history of kidney stones uterine fibroids type 2 diabetes chronic UTIs presenting today with right-sided abdominal flank pain. She reports it is her around 3:00 p.m.. No nausea or vomiting generally just not feeling well. She has had multiple things happened to her over the years. She has recently noted to have elevated glucose. Denies fever is currently afebrile. No chest pain or shortness of breath. Overall feeling much better after Toradol. Related Data Home Medications Medication Instructions Recorded Confirmed ascorbic acid (vitamin C) 1,000 mg 500 mg PO DAILY 10/17/21 11/20/23 tablet (Vitamin C) cholecalciferol (vitamin D3) 50 50 mcg PO DAILY 10/17/21 11/20/23 mcg (2,000 unit) tablet (Vitamin D3) bilberry fruit 1,000 mg capsule 2,400 mg PO DAILY 01/11/22 11/20/23 Previous Rx's Medication Instructions Recorded clobetasol 0.05 % topical ointment 1 applic topical .twice a week #30 11/20/23 grams estradiol 0.01% (0.1 mg/gram) 0.25 appful vaginal 2XW #42.5 grams 11/20/23 vaginal cream (Estrace) sulfamethoxazole 800 1 tab PO BID #10 tabs 11/20/23 mg-trimethoprim 160 mg tablet (Bactrim DS) Allergies Allergy/AdvReac Type Severity Reaction Status Date / Time cat dander Allergy Severe Anaphylaxis Verified 01/28/24 19:44 nickel AdvReac Intermediate Verified 01/28/24 19:44 orange soap in OR Allergy Severe Rash Uncoded 11/20/23 11:52 Patient History Medical History (Updated 01/29/24 @ 03:13 by Lena Green DO) Vitamin D deficiency Medicare annual wellness visit, subsequent Stress incontinence Bilateral shoulder pain Shoulder pain Wrist pain (~2010) Injection of surface of left eye (09/16/20) Diabetic retinopathy, nonproliferative Diabetes Seasonal allergies Glucosuria Retinal degeneration Surgical History (Updated 07/19/22 @ 10:33 by Celio Hewitt DO) Hx of bariatric surgery Anesthesia History of hysterectomy (~01/11/22) History of removal of cyst (~2013) Status post wrist surgery (~2010) Hx of bariatric surgery Cataract extraction status, left eye (11/18/15) History of hysteroscopy (10/17/21) Family History Father Cancer History of heart disease Stroke Mother Bladder infection Brother History of heart disease Grandfather Cancer Grandmother Stroke Grandfather Alcoholism Grandmother History of cholecystectomy Family/Other Multiple sclerosis Social History household members: spouse Smoking Status: Never smoker alcohol intake: current Smoking Status: Never smoker alcohol intake frequency: a few times a week Substance Use Type: does not use Exam Initial Vital Signs Initial Vital Signs: Vital Signs Temperature 97.1 F L 01/28/24 19:44 Pulse Rate 47 L 01/28/24 19:44 Respiratory Rate 17 01/28/24 19:44 Blood Pressure 190/86 H 01/28/24 19:44 Pulse Oximetry 97 01/28/24 19:44 Oxygen Delivery Method Room Air 01/28/24 19:44 GENERAL: Alert well-appearing 73-year-old female HEENT: Head atraumatic,EOMI, pupils reactive, face symmetric, moist mucous membranes CARDIOVASCULAR: Regular rate and rhythm without murmurs, rubs or gallops. RESPIRATORY: Breath sounds equal bilaterally, no wheezes rales or rhonchi. ABDOMEN: Soft, minimal right lower quadrant pain no guarding or rebound : Mild right CVA tenderness EXTREMITIES: Normal range of motion, no clubbing or edema. Neurovascularly intact NEUROLOGICAL: Alert and oriented x4.Normal gait and speech. [id number], strength equal bilaterally, no dysarthria or aphasia, sensation in tact to soft touch bilaterally, no visual changes, no facial droop] SKIN: Warm, dry, no laceration, no petechiae, no rashes or lesions. Course Orders Ordered: ED Orders 01/28/24 20:20 Urine Culture Stat Urine Microscopic Stat 01/28/24 21:20 A1C [Hemoglobin A1C% w Est Avg Glu] Stat CBC Auto Diff [Complete Blood Count AUTO DIFF] Stat CMP [Comprehensive Metabolic Panel] Stat 01/28/24 22:05 Blood Culture Stat 01/28/24 22:11 CT kidney ureter bladder (KUB) Stat 01/29/24 00:44 Lactate (Lactic Acid) Stat 01/29/24 00:52 Consult to Physician Stat 01/29/24 02:00 CMP [Comprehensive Metabolic Panel] Stat Sodium Chloride (Normal Saline 0.9%) 1,000 mls @ 125 mls/hr IV CONT BRITTANI Last Admin: 01/29/24 02:45 Dose: 125 mls/hr Documented By: ADRIA Ondansetron HCl (Ondansetron 4 Mg/2 Ml Inj) 4 mg IV NOW PRN PRN Reason: Nausea And Vomiting Ondansetron HCl (Ondansetron 4 Mg Odt) 4 mg SL NOW PRN PRN Reason: Nausea And Vomiting Last Admin: 01/28/24 20:55 Dose: 4 mg Documented By: ADRIA Discontinued Medications Sodium Chloride (Normal Saline 0.9%) 1,000 mls @ 1,000 mls/hr IV BOLUS ONE Stop: 01/28/24 22:58 Last Infusion: 01/28/24 23:21 Dose: Infused Documented By: Admin: 01/28/24 22:10 Dose: 1,000 mls/hr Documented By: OW Ceftriaxone Sodium 1,000 mg/ (Sodium Chloride) 100 mls @ 200 mls/hr IV NOW ONE Stop: 01/28/24 22:00 Last Infusion: 01/28/24 23:21 Dose: Infused Documented By: Admin: 01/28/24 22:43 Dose: 200 mls/hr Documented By: AFSHIN Ketorolac Tromethamine (Ketorolac 30 Mg/Ml Vial) 15 mg IV NOW ONE Stop: 01/28/24 22:12 Last Admin: 01/28/24 22:21 Dose: 15 mg Documented By: AFSHIN Vital Signs Vital signs: Vital Signs - 8 hr 01/28/24 19:44 01/28/24 21:30 01/28/24 22:01 Temperature 97.1 F L Pulse Rate 47 L 57 L 58 L Respiratory Rate 17 20 18 Blood Pressure 190/86 H 171/77 H 176/79 H Pulse Oximetry 97 99 94 Oxygen Delivery Method Room Air Room Air Room Air 01/28/24 22:29 01/28/24 22:31 01/28/24 23:01 Temperature 97.5 F L Pulse Rate 61 62 63 Respiratory Rate 18 Blood Pressure 166/70 H 161/68 H 179/74 H Pulse Oximetry 99 96 94 Oxygen Delivery Method Room Air Room Air 01/28/24 23:31 01/28/24 23:45 01/29/24 00:00 Temperature Pulse Rate 65 69 64 Respiratory Rate Blood Pressure 133/63 118/57 L 128/57 L Pulse Oximetry 97 98 97 Oxygen Delivery Method Room Air Room Air Room Air 01/29/24 00:31 01/29/24 01:01 01/29/24 01:55 Temperature 97.7 F Pulse Rate 68 65 65 Respiratory Rate 18 18 18 Blood Pressure 113/59 L 111/56 L 112/55 L Pulse Oximetry 97 96 98 Oxygen Delivery Method Room Air Room Air Room Air 01/29/24 02:00 01/29/24 02:00 Temperature Pulse Rate 63 Respiratory Rate Blood Pressure 103/53 L Pulse Oximetry 97 Oxygen Delivery Method MDM - Abdominal Pain Lab Data 01/28/24 21:20 01/29/24 02:00 Labs: Lab Results 01/28/24 01/28/24 01/29/24 Range/Units 20:20 21:20 02:00 WBC 12.7 H (4.5-11.0) X10^3/uL RBC 4.41 (4.0-5.2) X10^6/uL Hgb 12.0 (12.0-16.0) g/dL Hct 37.0 (36-46) % MCV 83.9 (80-100) fL MCH 27.3 (26-34) PG MCHC 32.5 (30-36) % RDW 14.6 (11.6-14.8) % Plt Count 272 (150-400) X10^3/uL Neut % (Auto) 87.2 H (50-75) % Lymph % (Auto) 7.8 L (25-40) % [place] % (Auto) 4.4 (3-14) % Eos % (Auto) 0.2 L (2-4) % Baso % (Auto) 0.4 (0-2) % Neut # (Auto) 55958 H (4927-0361) /uL Lymph # (Auto) 1000 L (6438-4544) /uL [place] # (Auto) 600 (0-900) /uL Eos # (Auto) 0 (0-450) /uL Baso # (Auto) 0 (0-100) /uL Sodium 129 L 132 L (137-145) mmol/L Potassium 5.5 H 4.7 (3.4-5.1) mmol/L Chloride 97 L 100 (98-107) mmol/L Carbon Dioxide 25 26 (22-32) mmol/L BUN 26 H 24 H (7-17) mg/dL Creatinine 1.01 0.93 (0.52-1.04) mg/dL Estimated GFR 59 L > 60 (>60) mL/min BUN/Creatinine Ratio 25.7 H 25.8 H (6-22) Glucose 585 H* 481 H D (80-110) mg/dL Hemoglobin A1c 12.8 H (4.0-6.0) % Lactate 1.1 (0.7-2.1) mmol/L Calcium 9.2 8.6 (8.4-10.2) mg/dL Total Bilirubin 0.7 0.7 (0.2-1.3) mg/dL AST 27 24 (14-36) IU/L ALT 19 19 (<35) IU/L Alkaline Phosphatase 101 96 (38-126) U/L Total Protein 7.1 7.0 (6.3-8.2) g/dL Albumin 3.8 3.6 (3.5-5.0) g/dL Globulin 3.3 3.4 (1.7-4.1) g/dL Albumin/Globulin Ratio 1.2 1.1 (1.0-2.8) Urine RBC 1-5/hpf (0-5/HPF) Urine WBC 5-10/hpf H (0-5/HPF) Ur Squamous Epith Cells 1-5 /hpf (0-5/HPF) Urine Bacteria Moderate (10-30) H (None) Urine Mucus 1+ H (Negative) Urine Yeast 5-10/hpf H (None) Ur Culture Indicated? Specimen cultured Vol Urine Centrifuged Low vol <1ml unspun A Point of care testing: Point of Care Testing Glucose POC 500 Urine Dip Bedside Urine Glucose 1000 mg/dl Bedside Urine Bilirubin - Negative Bedside Urine Ketone +/- 5 Urine Specific [place] 1.010 Bedside Urine Occult Blood + Bedside Urine pH 6.0 Bedside Urine Protein - Negative Bedside Urine Urobilinogen - Negative Bedside Urine Nitrite - Negative Bedside Urine Leukocytes ++ [address] scan - abdomen/pelvis: Radiologist's Impression: PROCEDURE: CT KIDNEY URETER BLADDER (KUB) INDICATIONS: right flank pain TECHNIQUE: Axial sections were acquired from the lung bases to the pubic symphysis. Coronal and sagittal reformats were performed. For radiation dose reduction, the following was used: automated exposure control, adjustment of mA and/or kV according to patient size. COMPARISON: [facility], CT, CT ABDOMEN PELVIS W CON, 08/17/2021, 11:29. FINDINGS: Image quality: Diagnostic. Lower Chest: No significant findings. URINARY: Right Kidney: Right kidney appears mildly enlarged and edematous with perinephric fat stranding and moderate hydronephrosis. Right Ureter: Right proximal ureteral calculus is seen near the ureteropelvic junction measuring 11 mm in maximum dimension (1200 Hounsfield units). Left Kidney: No stones or hydronephrosis. Left Ureter: No hydroureter. Bladder: Normal wall thickness. No stones. ABDOMEN: Liver: No contour-deforming solid mass. Gallbladder: Small dependent calcified gallstones are present. No acute inflammatory changes. Biliary ducts: No biliary dilation. Pancreas: No ductal dilation. Spleen: Size is within normal limits. Adrenal Glands: No adrenal nodules. Stomach and Bowel: Postsurgical changes from prior gastric bypass surgery. Small bowel loops are unremarkable. Moderate colonic stool. Normal appendix. Peritoneum: No abnormal intraperitoneal fluid. No free air. Ventral Wall: No hernia. Abdominal Nodes: No enlarged retroperitoneal or mesenteric lymph nodes. Vessels: Aorta and inferior vena cava are normal in size. PELVIS: Pelvic Organs: Unremarkable. Pelvic Nodes: Unremarkable. Miscellaneous: No inguinal hernias are seen. Bones: Degenerative changes are seen in the included spine. IMPRESSION: Right proximal ureteral 11 mm calculus at the ureteropelvic junction with moderate right hydronephrosis and perinephric fat stranding. Approved by: Carl Swartz M.D. on 01/29/2024 at 0:02 MDM Narrative Medical decision making narrative: Patient is a 73-year-old female history of kidney stones type 2 diabetes presenting today with right leg pain that started around 3 PN. At time of my evaluation she had been given Toradol and pain had significantly in improved. Blood work has been reviewed she is found to have leukocytosis of 12.7, lactate 1.1, sodium 129, potassium 5.5, chloride 97, CO2 25 BUN 26 creatinine 1.0 glucose 585 hemoglobin A1c 12 point Urinalysis positive for UTI with bacteria and leukocyte CT imaging reviewed 11 mm kidney stone at UPJ with moderate right hydronephrosis and perinephric stranding Patient overall appears well she has afebrile not yet septic although she does have a UTI with a very large kidney stone and uncontrolled diabetes. 12:52 Dr. Flores updated patient's symptoms test results, patient, agrees that patient would benefit from a stent sooner rather than later. Recommends admitting to hospitalist for diabetic control keep NPO after midnight anticipate stenting in the morning Patient has been given Rocephin and Toradol overall feeling better appears well Dr. Pastor accepts patient. Discharge Plan Departure Patient Disposition: Admitted as Observation Clinical Impression: UTI (urinary tract infection), Right nephrolithiasis, Diabetes Admit Date/Time: 01/29/24 02:50 Admit Provider: Charles Maria
[2024-01-29 01:10] LABS: Lactate (Lactic Acid) 1.1 mmol/L (0.7-2.1)
[2024-01-29 02:17] LABS: Alanine Aminotransferase 19 IU/L (<35); Albumin 3.6 g/dL (3.5-5.0); Albumin Globulin Ratio 1.1 (1.0-2.8); Alkaline Phosphatase 96 U/L (38-126); Aspartate Aminotransferase 24 IU/L (14-36); BUN Creatinine Ratio 25.8 (6-22); Bilirubin Total 0.7 mg/dL (0.2-1.3); Blood Urea Nitrogen 24 mg/dL (7-17); Calcium 8.6 mg/dL (8.4-10.2); Carbon Dioxide 26 mmol/L (22-32); Chloride 100 mmol/L (98-107); Estimated Glomerular Filt Rate > 60 mL/min (>60); Globulin 3.4 g/dL (1.7-4.1); Glucose 481 mg/dL (80-110); HEMOLYSIS < 15 (0-50); Potassium 4.7 mmol/L (3.4-5.1); Sodium 132 mmol/L (137-145)
[2024-01-29] MEDS: SODIUM CHLORIDE 0.9% 1,000 ML 125 ML IV ×4 (02:45→21:15)
--- NOTE | 2024-01-29 04:16 | PM.HP.1 ---
History of Present Illness History of Present Illness Date Patient Seen: 01/29/24 Chief complaint: Poss kidney stone painful Narrative: 73 y/o with PMH of right kidney stones admitted with obstructing, 11 mm, Rt ureteral stone at UPJ. She has right flank tenderness and pain, is nauseated and feels generalized weakness. Urologist contacted by ED attending and plans cystoscopy with stent. Started empiric abx and IVFs. [facility] Medical History Vitamin D deficiency Medicare annual wellness visit, subsequent Stress incontinence Bilateral shoulder pain Shoulder pain Wrist pain (~2010) Injection of surface of left eye (09/16/20) Diabetic retinopathy, nonproliferative Diabetes Seasonal allergies Glucosuria Retinal degeneration Surgical History Hx of bariatric surgery Anesthesia History of hysterectomy (~01/11/22) History of removal of cyst (~2013) Status post wrist surgery (~2010) Hx of bariatric surgery Cataract extraction status, left eye (11/18/15) History of hysteroscopy (10/17/21) Family History Father Cancer History of heart disease Stroke Mother Bladder infection Brother History of heart disease Grandfather Cancer Grandmother Stroke Grandfather Alcoholism Grandmother History of cholecystectomy Family/Other Multiple sclerosis Social History household members: spouse Smoking Status: Never smoker alcohol intake: current Meds Home Medications and Allergies Home Medications Medication Instructions Recorded Confirmed Type ascorbic acid (vitamin C) 1,000 mg 500 mg PO DAILY 10/17/21 01/29/24 History tablet (Vitamin C) cholecalciferol (vitamin D3) 50 50 mcg PO DAILY 10/17/21 01/29/24 History mcg (2,000 unit) tablet (Vitamin D3) bilberry fruit 1,000 mg capsule 2,400 mg PO DAILY 01/11/22 01/29/24 History clobetasol 0.05 % topical ointment 1 applic topical .twice a week #30 11/20/23 01/29/24 Rx grams estradiol 0.01% (0.1 mg/gram) 0.25 appful vaginal 2XW #42.5 grams 11/20/23 01/29/24 Rx vaginal cream (Estrace) Allergies Allergy/AdvReac Type Severity Reaction Status Date / Time cat dander Allergy Severe Anaphylaxis Verified 01/28/24 19:44 nickel AdvReac Intermediate Verified 01/28/24 19:44 orange soap in OR Allergy Severe Rash Uncoded 11/20/23 11:52 Review of Systems Constitutional Comments: fever and chills Cardiovascular Comments: w/o chest pain Respiratory Comments: w/o cough or shortness of breath Gastrointestinal Comments: nausea, vomiting Genitourinary Comments: right flank pain, w/o hematuria Exam Vital Signs (past 8 hours): - 01/28/24 21:30 01/28/24 22:01 01/28/24 22:29 Temperature Pulse Rate 57 L 58 L 61 Respiratory Rate 20 18 Blood Pressure 171/77 H 176/79 H 166/70 H Pulse Oximetry 99 94 99 Oxygen Delivery Method Room Air Room Air Oxygen Flow Rate 01/28/24 22:31 01/28/24 23:01 01/28/24 23:31 Temperature 97.5 F L Pulse Rate 62 63 65 Respiratory Rate 18 Blood Pressure 161/68 H 179/74 H 133/63 Pulse Oximetry 96 94 97 Oxygen Delivery Method Room Air Room Air Room Air Oxygen Flow Rate 01/28/24 23:45 01/29/24 00:00 01/29/24 00:31 Temperature Pulse Rate 69 64 68 Respiratory Rate 18 Blood Pressure 118/57 L 128/57 L 113/59 L Pulse Oximetry 98 97 97 Oxygen Delivery Method Room Air Room Air Room Air Oxygen Flow Rate 01/29/24 01:01 01/29/24 01:55 01/29/24 02:00 Temperature 97.7 F Pulse Rate 65 65 63 Respiratory Rate 18 18 Blood Pressure 111/56 L 112/55 L Pulse Oximetry 96 98 97 Oxygen Delivery Method Room Air Room Air Oxygen Flow Rate 01/29/24 02:00 01/29/24 02:31 01/29/24 03:01 Temperature Pulse Rate 71 69 Respiratory Rate 18 18 Blood Pressure 103/53 L 110/55 L 102/54 L Pulse Oximetry 97 96 Oxygen Delivery Method Room Air Room Air Oxygen Flow Rate 01/29/24 04:05 Temperature 97.2 F L Pulse Rate 64 Respiratory Rate 18 Blood Pressure 107/37 L Pulse Oximetry 99 Oxygen Delivery Method Oxygen Flow Rate 0 Oxygen Delivery Method Room Air Oxygen Flow Rate 0 Const Other: laying in bed in no distress Resp Other: normal respiratory effort Cardio Other: RRR Skin Other: w/o rashes Neuro Other: w/o deficits Extrem Other: w/o swelling Psych Other: lucid Objective Labs 01/29/24 05:55 01/29/24 05:55 Labs: Laboratory Results - last 24 hr 01/28/24 01/28/24 01/29/24 20:20 21:20 02:00 WBC 12.7 H RBC 4.41 Hgb 12.0 Hct 37.0 MCV 83.9 MCH 27.3 MCHC 32.5 RDW 14.6 Plt Count 272 Neut % (Auto) 87.2 H Lymph % (Auto) 7.8 L [place] % (Auto) 4.4 Eos % (Auto) 0.2 L Baso % (Auto) 0.4 Neut # (Auto) 92986 H Lymph # (Auto) 1000 L [place] # (Auto) 600 Eos # (Auto) 0 Baso # (Auto) 0 Sodium 129 L 132 L Potassium 5.5 H 4.7 Chloride 97 L 100 Carbon Dioxide 25 26 BUN 26 H 24 H Creatinine 1.01 0.93 Estimated GFR 59 L > 60 BUN/Creatinine Ratio 25.7 H 25.8 H Glucose 585 H* 481 H D Hemoglobin A1c 12.8 H Lactate 1.1 Calcium 9.2 8.6 Total Bilirubin 0.7 0.7 AST 27 24 ALT 19 19 Alkaline Phosphatase 101 96 Total Protein 7.1 7.0 Albumin 3.8 3.6 Globulin 3.3 3.4 Albumin/Globulin Ratio 1.2 1.1 Urine RBC 1-5/hpf Urine WBC 5-10/hpf H Ur Squamous Epith Cells 1-5 /hpf Urine Bacteria Moderate (10-30) H Urine Mucus 1+ H Urine Yeast 5-10/hpf H Ur Culture Indicated? Specimen cultured Vol Urine Centrifuged Low vol <1ml unspun A Assessment & Plan Assessment and plan (1) Ureteral stone with hydronephrosis: Status: Acute (2) Pyelonephritis of right kidney: Status: Acute (3) Right nephrolithiasis: Status: Acute (4) Type 2 diabetes mellitus without complication: Status: Acute Assessment & Plan narrative: 1. Rt UPJ 11 mm obstructing stone - Flomax, IVFs, NPO, cystoscopy / stent by urology - has right kidney stones since few years ago - moderate hydronephrosis with renal function at baseline 2. SS,low - adjust as needed DVT prophylaxis - SCDs
[2024-01-29] MEDS: INSULIN LISPRO 100 UNIT/ML 3ML VIAL SUBCUT ×5 (04:38→21:32)
[2024-01-29] MEDS: TAMSULOSIN 0.4 MG CAPSULE PO (04:40)
[2024-01-29 06:25] LABS: Add Manual Diff / Slide Review NO; Basophils Absolute Auto 0 /uL (0-100); Basophils Percent Auto 0.1 % (0-2); Eosinophils Absolute Auto 0 /uL (0-450); Hemoglobin 10.6 g/dL (12.0-16.0); Lymphocytes Absolute Auto 1500 /uL (1100-4500); Lymphocytes Percent Auto 8.7 % (25-40); Mean Corpuscular HGB Conc 32.1 % (30-36); Mean Corpuscular Hemoglobin 26.9 PG (26-34); Mean Corpuscular Volume 83.8 fL (80-100); Monocytes Absolute Auto 700 /uL (0-900); Monocytes Percent Auto 4.4 % (3-14); Neutrophils Absolute Auto 14600 /uL (1500-7000); Neutrophils Percent Auto 86.8 % (50-75); Platelet Count 253 X10^3/uL (150-400); Red Blood Cell Count 3.94 X10^6/uL (4.0-5.2); Red Cell Distribution Width 14.8 % (11.6-14.8); White Blood Cell Count 16.8 X10^3/uL (4.5-11.0)
[2024-01-29 06:39] LABS: BUN Creatinine Ratio 27.5 (6-22); Blood Urea Nitrogen 25 mg/dL (7-17); Calcium 8.5 mg/dL (8.4-10.2); Carbon Dioxide 27 mmol/L (22-32); Chloride 102 mmol/L (98-107); Estimated Glomerular Filt Rate > 60 mL/min (>60); Glucose 422 mg/dL (80-110); HEMOLYSIS < 15 (0-50); Potassium 5.1 mmol/L (3.4-5.1); Sodium 134 mmol/L (137-145)
--- NOTE | 2024-01-29 07:02 | PM.CN ---
History of Present Illness Consult details Date Patient Seen: 01/29/24 Time Patient Seen: 07:02 Chief complaint: Poss kidney stone painful Reason for consult: 1. Impacted right UPJ calculus. 2. UTI/pyelonephritis. Requesting provider: Es De Oliveira Home Medications and Allergies Home Medications Medication Instructions Recorded Confirmed Type ascorbic acid (vitamin C) 1,000 mg 500 mg PO DAILY 10/17/21 01/29/24 History tablet (Vitamin C) cholecalciferol (vitamin D3) 50 50 mcg PO DAILY 10/17/21 01/29/24 History mcg (2,000 unit) tablet (Vitamin D3) bilberry fruit 1,000 mg capsule 2,400 mg PO DAILY 01/11/22 01/29/24 History clobetasol 0.05 % topical ointment 1 applic topical .twice a week #30 11/20/23 01/29/24 Rx grams estradiol 0.01% (0.1 mg/gram) 0.25 appful vaginal 2XW #42.5 grams 11/20/23 01/29/24 Rx vaginal cream (Estrace) Allergies Allergy/AdvReac Type Severity Reaction Status Date / Time cat dander Allergy Severe Anaphylaxis Verified 01/28/24 19:44 nickel AdvReac Intermediate Verified 01/28/24 19:44 orange soap in OR Allergy Severe Rash Uncoded 11/20/23 11:52 Review of Systems Review of Systems ROS: Yes All systems reviewed with the patient and are negative except as otherwise documented Exam Vital Signs (past 8 hours): - 01/28/24 23:31 01/28/24 23:45 01/29/24 00:00 Temperature Pulse Rate 65 69 64 Respiratory Rate Blood Pressure 133/63 118/57 L 128/57 L Pulse Oximetry 97 98 97 Oxygen Delivery Method Room Air Room Air Room Air Oxygen Flow Rate 01/29/24 00:31 01/29/24 01:01 01/29/24 01:55 Temperature 97.7 F Pulse Rate 68 65 65 Respiratory Rate 18 18 18 Blood Pressure 113/59 L 111/56 L 112/55 L Pulse Oximetry 97 96 98 Oxygen Delivery Method Room Air Room Air Room Air Oxygen Flow Rate 01/29/24 02:00 01/29/24 02:00 01/29/24 02:31 Temperature Pulse Rate 63 71 Respiratory Rate 18 Blood Pressure 103/53 L 110/55 L Pulse Oximetry 97 97 Oxygen Delivery Method Room Air Oxygen Flow Rate 01/29/24 03:01 01/29/24 04:00 01/29/24 04:05 Temperature 97.2 F L Pulse Rate 69 64 Respiratory Rate 18 18 Blood Pressure 102/54 L 107/37 L Pulse Oximetry 96 99 Oxygen Delivery Method Room Air Room Air Oxygen Flow Rate 0 Oxygen Delivery Method Room Air Oxygen Flow Rate 0 Narrative Exam Narrative: A well-developed and over nourished elderly female. Head/neck-sclera clear and pupils are equal and round bilaterally. No visible evidence of adenopathy or JVD. Chest-equal and unlabored expansion bilaterally. Heart-normal sinus rhythm. Objective Labs 01/29/24 05:55 01/29/24 05:55 Labs: Laboratory Results - last 24 hr 01/28/24 01/28/24 01/29/24 20:20 21:20 02:00 WBC 12.7 H RBC 4.41 Hgb 12.0 Hct 37.0 MCV 83.9 MCH 27.3 MCHC 32.5 RDW 14.6 Plt Count 272 Neut % (Auto) 87.2 H Lymph % (Auto) 7.8 L [place] % (Auto) 4.4 Eos % (Auto) 0.2 L Baso % (Auto) 0.4 Neut # (Auto) 96543 H Lymph # (Auto) 1000 L [place] # (Auto) 600 Eos # (Auto) 0 Baso # (Auto) 0 Sodium 129 L 132 L Potassium 5.5 H 4.7 Chloride 97 L 100 Carbon Dioxide 25 26 BUN 26 H 24 H Creatinine 1.01 0.93 Estimated GFR 59 L > 60 BUN/Creatinine Ratio 25.7 H 25.8 H Glucose 585 H* 481 H D Hemoglobin A1c 12.8 H Lactate 1.1 Calcium 9.2 8.6 Total Bilirubin 0.7 0.7 AST 27 24 ALT 19 19 Alkaline Phosphatase 101 96 Total Protein 7.1 7.0 Albumin 3.8 3.6 Globulin 3.3 3.4 Albumin/Globulin Ratio 1.2 1.1 Urine RBC 1-5/hpf Urine WBC 5-10/hpf H Ur Squamous Epith Cells 1-5 /hpf Urine Bacteria Moderate (10-30) H Urine Mucus 1+ H Urine Yeast 5-10/hpf H Ur Culture Indicated? Specimen cultured Vol Urine Centrifuged Low vol <1ml unspun A 01/29/24 05:55 WBC 16.8 H RBC 3.94 L Hgb 10.6 L Hct 33.0 L MCV 83.8 MCH 26.9 MCHC 32.1 RDW 14.8 Plt Count 253 Neut % (Auto) 86.8 H Lymph % (Auto) 8.7 L [place] % (Auto) 4.4 Eos % (Auto) 0.0 L Baso % (Auto) 0.1 Neut # (Auto) 30383 H Lymph # (Auto) 1500 [place] # (Auto) 700 Eos # (Auto) 0 Baso # (Auto) 0 Sodium 134 L Potassium 5.1 Chloride 102 Carbon Dioxide 27 BUN 25 H Creatinine 0.91 Estimated GFR > 60 BUN/Creatinine Ratio 27.5 H Glucose 422 H Hemoglobin A1c Lactate Calcium 8.5 Total Bilirubin AST ALT Alkaline Phosphatase Total Protein Albumin Globulin Albumin/Globulin Ratio Urine RBC Urine WBC Ur Squamous Epith Cells Urine Bacteria Urine Mucus Urine Yeast Ur Culture Indicated? Vol Urine Centrifuged [facility] Medical History Vitamin D deficiency Medicare annual wellness visit, subsequent Stress incontinence Bilateral shoulder pain Shoulder pain Wrist pain (~2010) Injection of surface of left eye (09/16/20) Diabetic retinopathy, nonproliferative Diabetes Seasonal allergies Glucosuria Retinal degeneration Surgical History Hx of bariatric surgery Anesthesia History of hysterectomy (~01/11/22) History of removal of cyst (~2013) Status post wrist surgery (~2010) Hx of bariatric surgery Cataract extraction status, left eye (11/18/15) History of hysteroscopy (10/17/21) Family History Father Cancer History of heart disease Stroke Mother Bladder infection Brother History of heart disease Grandfather Cancer Grandmother Stroke Grandfather Alcoholism Grandmother History of cholecystectomy Family/Other Multiple sclerosis Social History household members: spouse Tobacco & Substance Use Smoking Status: Never smoker alcohol intake: current Assessment & Plan Assessment and plan (1) Right nephrolithiasis: Status: Acute (2) Ureteral stone with hydronephrosis: Status: Acute (3) Pyelonephritis of right kidney: Status: Acute Plan 1. Schedule CYSTOSCOPY/RIGHT URETERAL STONE MANIPULATION WITHOUT REMOVAL/PLACEMENT RIGHT URETERAL STENT. Reviewed findings and explained indications for endoscopic relief right renal obstruction. Explained the potential common side effects, possible complications, perioperative limitations/restrictions, and reasonable expectations of outcomes and recovery following above recommended intervention. Further explained, return to operating room following treatment of identified bacteria right extracorporeal shockwave lithotripsy
--- NOTE | 2024-01-29 07:43 | PM.HP.1 ---
History of Present Illness History of Present Illness Chief complaint: Poss kidney stone painful Narrative: 73 y/o with PMH of right kidney stones admitted with obstructing, 11 mm, Rt ureteral stone at [facility]. She has right flank tenderness and pain, is nauseated and feels generalized weakness. Urologist contacted by ED attending and plans cystoscopy with stent. Started empiric abx and IVFs. [facility] Medical History Vitamin D deficiency Medicare annual wellness visit, subsequent Stress incontinence Bilateral shoulder pain Shoulder pain Wrist pain (~2010) Injection of surface of left eye (09/16/20) Diabetic retinopathy, nonproliferative Diabetes Seasonal allergies Glucosuria Retinal degeneration Surgical History Hx of bariatric surgery Anesthesia History of hysterectomy (~01/11/22) History of removal of cyst (~2013) Status post wrist surgery (~2010) Hx of bariatric surgery Cataract extraction status, left eye (11/18/15) History of hysteroscopy (10/17/21) Family History Father Cancer History of heart disease Stroke Mother Bladder infection Brother History of heart disease Grandfather Cancer Grandmother Stroke Grandfather Alcoholism Grandmother History of cholecystectomy Family/Other Multiple sclerosis Social History household members: spouse Smoking Status: Never smoker alcohol intake: current Meds Home Medications and Allergies Home Medications Medication Instructions Recorded Confirmed Type ascorbic acid (vitamin C) 1,000 mg 500 mg PO DAILY 10/17/21 01/29/24 History tablet (Vitamin C) cholecalciferol (vitamin D3) 50 50 mcg PO DAILY 10/17/21 01/29/24 History mcg (2,000 unit) tablet (Vitamin D3) bilberry fruit 1,000 mg capsule 2,400 mg PO DAILY 01/11/22 01/29/24 History clobetasol 0.05 % topical ointment 1 applic topical .twice a week #30 11/20/23 01/29/24 Rx grams estradiol 0.01% (0.1 mg/gram) 0.25 appful vaginal 2XW #42.5 grams 11/20/23 01/29/24 Rx vaginal cream (Estrace) Allergies Allergy/AdvReac Type Severity Reaction Status Date / Time cat dander Allergy Severe Anaphylaxis Verified 01/28/24 19:44 nickel AdvReac Intermediate Verified 01/28/24 19:44 orange soap in OR Allergy Severe Rash Uncoded 11/20/23 11:52 Review of Systems Constitutional Comments: Malaise, generalized weakness Genitourinary Comments: Flank pain Nausea Without hematuria Exam Vital Signs (past 8 hours): - 01/28/24 23:45 01/29/24 00:00 01/29/24 00:31 Temperature Pulse Rate 69 64 68 Respiratory Rate 18 Blood Pressure 118/57 L 128/57 L 113/59 L Pulse Oximetry 98 97 97 Oxygen Delivery Method Room Air Room Air Room Air Oxygen Flow Rate 01/29/24 01:01 01/29/24 01:55 01/29/24 02:00 Temperature 97.7 F Pulse Rate 65 65 63 Respiratory Rate 18 18 Blood Pressure 111/56 L 112/55 L Pulse Oximetry 96 98 97 Oxygen Delivery Method Room Air Room Air Oxygen Flow Rate 01/29/24 02:00 01/29/24 02:31 01/29/24 03:01 Temperature Pulse Rate 71 69 Respiratory Rate 18 18 Blood Pressure 103/53 L 110/55 L 102/54 L Pulse Oximetry 97 96 Oxygen Delivery Method Room Air Room Air Oxygen Flow Rate 01/29/24 04:00 01/29/24 04:05 Temperature 97.2 F L Pulse Rate 64 Respiratory Rate 18 Blood Pressure 107/37 L Pulse Oximetry 99 Oxygen Delivery Method Room Air Oxygen Flow Rate 0 Oxygen Delivery Method Room Air Oxygen Flow Rate 0 Const Other: in no distress, laying in bed Resp Other: normal respiratory effort Cardio Other: RRR Other: right flank pain Extrem Other: w/o swelling Psych Other: lucid Objective Labs 01/29/24 05:55 01/29/24 05:55 Labs: Laboratory Results - last 24 hr 01/28/24 01/28/24 01/29/24 20:20 21:20 02:00 WBC 12.7 H RBC 4.41 Hgb 12.0 Hct 37.0 MCV 83.9 MCH 27.3 MCHC 32.5 RDW 14.6 Plt Count 272 Neut % (Auto) 87.2 H Lymph % (Auto) 7.8 L [place] % (Auto) 4.4 Eos % (Auto) 0.2 L Baso % (Auto) 0.4 Neut # (Auto) 45129 H Lymph # (Auto) 1000 L [place] # (Auto) 600 Eos # (Auto) 0 Baso # (Auto) 0 Sodium 129 L 132 L Potassium 5.5 H 4.7 Chloride 97 L 100 Carbon Dioxide 25 26 BUN 26 H 24 H Creatinine 1.01 0.93 Estimated GFR 59 L > 60 BUN/Creatinine Ratio 25.7 H 25.8 H Glucose 585 H* 481 H D Hemoglobin A1c 12.8 H Lactate 1.1 Calcium 9.2 8.6 Total Bilirubin 0.7 0.7 AST 27 24 ALT 19 19 Alkaline Phosphatase 101 96 Total Protein 7.1 7.0 Albumin 3.8 3.6 Globulin 3.3 3.4 Albumin/Globulin Ratio 1.2 1.1 Urine RBC 1-5/hpf Urine WBC 5-10/hpf H Ur Squamous Epith Cells 1-5 /hpf Urine Bacteria Moderate (10-30) H Urine Mucus 1+ H Urine Yeast 5-10/hpf H Ur Culture Indicated? Specimen cultured Vol Urine Centrifuged Low vol <1ml unspun A 01/29/24 05:55 WBC 16.8 H RBC 3.94 L Hgb 10.6 L Hct 33.0 L MCV 83.8 MCH 26.9 MCHC 32.1 RDW 14.8 Plt Count 253 Neut % (Auto) 86.8 H Lymph % (Auto) 8.7 L [place] % (Auto) 4.4 Eos % (Auto) 0.0 L Baso % (Auto) 0.1 Neut # (Auto) 72242 H Lymph # (Auto) 1500 [place] # (Auto) 700 Eos # (Auto) 0 Baso # (Auto) 0 Sodium 134 L Potassium 5.1 Chloride 102 Carbon Dioxide 27 BUN 25 H Creatinine 0.91 Estimated GFR > 60 BUN/Creatinine Ratio 27.5 H Glucose 422 H Hemoglobin A1c Lactate Calcium 8.5 Total Bilirubin AST ALT Alkaline Phosphatase Total Protein Albumin Globulin Albumin/Globulin Ratio Urine RBC Urine WBC Ur Squamous Epith Cells Urine Bacteria Urine Mucus Urine Yeast Ur Culture Indicated? Vol Urine Centrifuged Assessment & Plan Assessment and plan (1) Pyelonephritis of right kidney: Status: Acute (2) Ureteral stone with hydronephrosis: Status: Acute (3) Type 2 diabetes mellitus without complication: Status: Acute Assessment & Plan narrative: 1. Rt UPJ stone - NPO for cystocopy / stenting - Flomax, pain management, antiemetics 2. Rt Pyelonephritis - Rocephin - follow cultures 3. DM - SS only for now DVT prophylaxis - SCDs
--- NOTE | 2024-01-29 08:21 | P.HP_ITS ---
History of Present Illness History of Present Illness Date Patient Seen: 01/29/24 Chief complaint: Poss kidney stone painful Narrative: From Night Doctor: 73 y/o with PMH of right kidney stones admitted with obstructing, 11 mm, Rt ureteral stone at [facility]. She has right flank tenderness and pain, is nauseated and feels generalized weakness. Urologist contacted by ED attending and plans cystoscopy with stent. Started empiric abx and IVFs. Additional history: She does have a history of kidney stones. Her left flank pain is improved with her pain medicine but she is having intermittent restlessness and diaphoresis. She has had 1 previous kidney stone. The urologist and see her this morning and will attempts at placement and possible extraction of stone this afternoon at 3:00 p.m.. She denies any nausea. No fevers, or chills. She was given 1 dose of ceftriaxone this morning. [facility] Medical History Vitamin D deficiency Medicare annual wellness visit, subsequent Stress incontinence Bilateral shoulder pain Shoulder pain Wrist pain (~2010) Injection of surface of left eye (09/16/20) Diabetic retinopathy, nonproliferative Diabetes Seasonal allergies Glucosuria Retinal degeneration Surgical History Hx of bariatric surgery Anesthesia History of hysterectomy (~01/11/22) History of removal of cyst (~2013) Status post wrist surgery (~2010) Hx of bariatric surgery Cataract extraction status, left eye (11/18/15) History of hysteroscopy (10/17/21) Family History Father Cancer History of heart disease Stroke Mother Bladder infection Brother History of heart disease Grandfather Cancer Grandmother Stroke Grandfather Alcoholism Grandmother History of cholecystectomy Family/Other Multiple sclerosis Social History household members: spouse Smoking Status: Never smoker alcohol intake: current Meds Home Medications and Allergies Home Medications Medication Instructions Recorded Confirmed Type ascorbic acid (vitamin C) 1,000 mg 500 mg PO DAILY 10/17/21 01/29/24 History tablet (Vitamin C) cholecalciferol (vitamin D3) 50 50 mcg PO DAILY 10/17/21 01/29/24 History mcg (2,000 unit) tablet (Vitamin D3) bilberry fruit 1,000 mg capsule 2,400 mg PO DAILY 01/11/22 01/29/24 History clobetasol 0.05 % topical ointment 1 applic topical .twice a week #30 11/20/23 01/29/24 Rx grams estradiol 0.01% (0.1 mg/gram) 0.25 appful vaginal 2XW #42.5 grams 11/20/23 01/29/24 Rx vaginal cream (Estrace) Allergies Allergy/AdvReac Type Severity Reaction Status Date / Time cat dander Allergy Severe Anaphylaxis Verified 01/28/24 19:44 nickel AdvReac Intermediate Verified 01/28/24 19:44 orange soap in OR Allergy Severe Rash Uncoded 11/20/23 11:52 Review of Systems Review of Systems Narrative: All else reviewed and otherwise unremarkable except as noted in the history and physical. Exam Vital Signs (past 8 hours): - 01/29/24 00:31 01/29/24 01:01 01/29/24 01:55 Temperature 97.7 F Pulse Rate 68 65 65 Respiratory Rate 18 18 18 Blood Pressure 113/59 L 111/56 L 112/55 L Pulse Oximetry 97 96 98 Oxygen Delivery Method Room Air Room Air Room Air Oxygen Flow Rate 01/29/24 02:00 01/29/24 02:00 01/29/24 02:31 Temperature Pulse Rate 63 71 Respiratory Rate 18 Blood Pressure 103/53 L 110/55 L Pulse Oximetry 97 97 Oxygen Delivery Method Room Air Oxygen Flow Rate 01/29/24 03:01 01/29/24 04:00 01/29/24 04:05 Temperature 97.2 F L Pulse Rate 69 64 Respiratory Rate 18 18 Blood Pressure 102/54 L 107/37 L Pulse Oximetry 96 99 Oxygen Delivery Method Room Air Room Air Oxygen Flow Rate 0 01/29/24 08:00 Temperature 97.1 F L Pulse Rate 68 Respiratory Rate 16 Blood Pressure 94/44 L Pulse Oximetry 98 Oxygen Delivery Method Oxygen Flow Rate 0 Oxygen Delivery Method Room Air Oxygen Flow Rate 0 Narrative Exam Narrative: NAD, alert and oriented, fluent speech, mildly anxious. Normocephalic skull, EOMI, anicteric sclera, symmetric pupils. Oropharynx unremarkable, no droop. Neck supple, midline trachea, no adenopathy. Lungs clear, normal rate and effort. Heart regular, no murmur gallop or rub. Abdomen is soft, non distended and non tender. Extremities are free of edema. Skin is free of rash or lesions. Joints are not swollen or deformed. Judgment appears to be normal. Objective Imaging CT scan - abdomen: Radiologist's impression: Right proximal ureteral 11 mm calculus at the ureteropelvic junction with moderate right hydronephrosis and perinephric fat stranding. Labs 01/29/24 05:55 01/29/24 05:55 Labs: Laboratory Results - last 24 hr 01/28/24 01/28/24 01/29/24 20:20 21:20 02:00 WBC 12.7 H RBC 4.41 Hgb 12.0 Hct 37.0 MCV 83.9 MCH 27.3 MCHC 32.5 RDW 14.6 Plt Count 272 Neut % (Auto) 87.2 H Lymph % (Auto) 7.8 L [place] % (Auto) 4.4 Eos % (Auto) 0.2 L Baso % (Auto) 0.4 Neut # (Auto) 55542 H Lymph # (Auto) 1000 L [place] # (Auto) 600 Eos # (Auto) 0 Baso # (Auto) 0 Sodium 129 L 132 L Potassium 5.5 H 4.7 Chloride 97 L 100 Carbon Dioxide 25 26 BUN 26 H 24 H Creatinine 1.01 0.93 Estimated GFR 59 L > 60 BUN/Creatinine Ratio 25.7 H 25.8 H Glucose 585 H* 481 H D Hemoglobin A1c 12.8 H Lactate 1.1 Calcium 9.2 8.6 Total Bilirubin 0.7 0.7 AST 27 24 ALT 19 19 Alkaline Phosphatase 101 96 Total Protein 7.1 7.0 Albumin 3.8 3.6 Globulin 3.3 3.4 Albumin/Globulin Ratio 1.2 1.1 Urine RBC 1-5/hpf Urine WBC 5-10/hpf H Ur Squamous Epith Cells 1-5 /hpf Urine Bacteria Moderate (10-30) H Urine Mucus 1+ H Urine Yeast 5-10/hpf H Ur Culture Indicated? Specimen cultured Vol Urine Centrifuged Low vol <1ml unspun A 01/29/24 05:55 WBC 16.8 H RBC 3.94 L Hgb 10.6 L Hct 33.0 L MCV 83.8 MCH 26.9 MCHC 32.1 RDW 14.8 Plt Count 253 Neut % (Auto) 86.8 H Lymph % (Auto) 8.7 L [place] % (Auto) 4.4 Eos % (Auto) 0.0 L Baso % (Auto) 0.1 Neut # (Auto) 00252 H Lymph # (Auto) 1500 [place] # (Auto) 700 Eos # (Auto) 0 Baso # (Auto) 0 Sodium 134 L Potassium 5.1 Chloride 102 Carbon Dioxide 27 BUN 25 H Creatinine 0.91 Estimated GFR > 60 BUN/Creatinine Ratio 27.5 H Glucose 422 H Hemoglobin A1c Lactate Calcium 8.5 Total Bilirubin AST ALT Alkaline Phosphatase Total Protein Albumin Globulin Albumin/Globulin Ratio Urine RBC Urine WBC Ur Squamous Epith Cells Urine Bacteria Urine Mucus Urine Yeast Ur Culture Indicated? Vol Urine Centrifuged Assessment & Plan Assessment & Plan narrative: Assessment & Plan narrative: 1. Rt UPJ stone, present on admission and active. - NPO for cystocopy / stenting today at 3:00 p.m.. - Flomax, pain management, antiemetics 2. Rt Pyelonephritis, present on admission and active. - Rocephin - follow cultures 3. DM, present on admission and active. - SS only for now 4. Obesity class 1, present on admission and active. DVT prophylaxis - SCDs Time Spent With Patient Time with patient: 30 to 49 minutes with 50% spent counseling/coordinating care Quality MIPS - Admit I confirm the patient?s Advance Care Plan is present, Code status is documented, Surrogate decision maker is in patient?s record [If Yes, STOP here]: Yes MIPS - Meds 'Current medications' to include all prescriptions, [id number] products, herbals, cannabis/cannabidiol products, and vitamin/mineral/dietary (nutritional) supplements. I have utilized all available resources to obtain, update, or review the patient?s current medications. [If Yes, STOP here]: Yes
[2024-01-29] MEDS: ACETAMINOPHEN 325 MG TABLET 650 MG PO (09:25)
--- NOTE | 2024-01-29 14:34 | CM.DANOTE ---
DCP Assessment Note Pt is a 73yo F here following kidney stones. PMH of kidney stones. [facility] and hospitalist following. Cystocopy/stenting scheduled for Saturday at 3pm. PCP Celio Hewitt Payer Medicare and [employer] MANAGER reviewed EMR. Per RN, no obvious CM needs. CO[employer] SH[employer] MANAGER entered room and introduced self and role. Pt resting in bed. Confirms lives in [place] with spouse, adult dtr nearby if needed. Indep/active at baseline, drive, no DME. 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 Pt anticipates no dc needs. Plan; home with spouse when medically stable. No identified CM needs. CM team will follow as needed. MONICA Nesbitt Discharge Planning/Care Management CM Discharge Assessment Start: 01/29/24 14:31 Freq: Status: Active Protocol: Document 01/29/24 14:31 (Rec: 01/29/24 14:34 [id number]) Discharge Planning Assessment Assigned [employer] Nurse MONICA Abdalla DPOA/Assigned Designee Name albaro Lugo Contact Information [phone] Advance Directives? Yes Advance Directives on File No History Provided By Patient,Significant Other, Medical Record Prior Living Arrangements House Household Members spouse Type of transporation used prior to Drives own vehicle admit Independent with ADL's Yes Is patient alert and oriented? Yes Barriers to Discharge No Discharge Plan Home Transportation Arrangement Spouse Referrals Initiated None needed Whiteboard Updated in Patient Room with Yes name and ext. # of [employer] Nurse Review Status In Process Next Review Type Continued Stay Review
--- NOTE | 2024-01-29 18:49 | PM.PREOP ---
Pre-operative Note Interval Note History & Physical reviewed/Exam performed by Physician: Yes Changes to H&P: No
[2024-01-29] MEDS: LACTATED RINGERS 1,000 ML 42 ML IV ×2 (19:14→20:50)
--- NOTE | 2024-01-29 19:55 | SUR.OPER ---
Lithotomy on padded OR bed, head on pillow, arms secured on padded arm boards at <90 degrees abduction. Legs secured in padded yellow fins stirrups.
--- NOTE | 2024-01-29 20:02 | P.OP_ITS ---
Operative Date/Time/Diagnoses Date of procedure: 01/29/24 Time of procedure: 20:03 Pre-op diagnosis: 1. Obstructing 11 mm right ureteropelvic junction calculus. 2. UTI/right pyelonephritis/urosepsis Post-op diagnosis: same Procedure & Clinicians Procedure: 1. Cystoscopy/right ureteral stone manipulation without removal. 2. Cystoscopy/placement right ureteral stent Same procedure as scheduled: Yes Indications: 1. Obstructing 11 mm right ureteropelvic junction calculus. 2. Right pyelonephritis/urosepsis. Surgeon: Arnaldo Flores Click Yes if Unassisted: Yes Anesthesia Type: General Operative Notes Findings: 1. Urethra-Normal caliber and location. No mass, lesion or discharge. 2. Bladder-trace trabeculation. Turbid urine. Normal ureteral orifices bilaterally. Following advancement of hybrid guidewire under direct and fluoroscopic guidance. Turbid efflux was witnessed from the right ureteral orifice. Closure Type: not applicable Specimen(s): none sent Applied: other (Seven Bulgarian by 22-32 cm multilink stent.) Estimated Blood Loss (mL): 0 Blood products transfused: none Procedure in detail: The patient was positioned in supine was administered general anesthesia. She was then carefully positioned in semi lithotomy in the lower abdomen, groin and vaginal vault were prepped and draped in sterile fashion. The 22 Bulgarian panendoscope was then passed the lower urinary tract with the findings as descr ibed above. A 0.35 hybrid guidewire was then advanced through the working channel of the panendoscope and advanced in the right ureteral orifice under direct and fluoroscopic guidance. The process of positioning the hybrid guidewire the index calculus was repositioned retrograde into the central renal pelvis. Next, a 7 Bulgarian by 22-32 cm multi-length ureteral catheter was selected and advanced over the hybrid guidewire again under direct and fluoroscopic guidance. NO RETRIEVAL LINE WAS LEFT ATTACHED. The bladder contents were then drained completely and the panendoscope was removed. The patient was then repositioned in supine, awakened, then transferred to [facility] for transport to PACU in stable condition. Complications: none Post-operative Condition: stable Disposition: PACU Plan for aftercare: Admit to acute care-hospitalist service.
--- NOTE | 2024-01-29 21:07 | SUR.PHASEI ---
Pt transferred to room 213 in bed by this RN with glasses. SBAR report to Elaina DE ANDA.
--- NOTE | 2024-01-29 21:07 | SUR.PHASEI ---
CBG 2in PACU. No new orders per Dr Buchanan. Floor to follow and cover.
[2024-01-29] MEDS: OXYCODONE IR 5 MG TABLET PO (23:08)
[2024-01-30 01:24] VITALS: BP 118/43; PULSE 72; RESP 19; TEMP 36.6; O2SAT 96
[2024-01-30] MEDS: KETOROLAC 30 MG/ML VIAL IV (05:18)
[2024-01-30 05:36] VITALS: BP 124/44; PULSE 66; RESP 20; TEMP 36.6; O2SAT 97
--- NOTE | 2024-01-30 08:09 | P.PN_ITS ---
Subjective Subjective Date Patient Seen: 01/30/24 Time Patient Seen: 07:40 Interval history: 73-year-old female admitted 01/29/2024, for management right calculus pyelonephritis/urosepsis, and marked hyperglycemia. Now status post cystoscopy, stone manipulation, and placement right ureteral stent last evening. She reports a smooth an excellent recovery thus far. She reports generalized improved energy level and denies any ongoing procedural pain. Exam Vital Signs (past 8 hours): - 01/30/24 01:24 01/30/24 05:36 Temperature 97.8 F 98 F Pulse Rate 72 66 Respiratory Rate 19 20 Blood Pressure 118/43 L 124/44 L Pulse Oximetry 96 97 Oxygen Flow Rate 0 0 Oxygen Delivery Method Room Air Oxygen Flow Rate 0 Narrative Exam Narrative: Not repeated. Objective Labs 01/29/24 05:55 01/29/24 05:55 [facility] Medical History (Updated 01/30/24 @ 08:11 by Arnaldo Flores MD) Postmenopausal atrophic vaginitis History of nephrolithiasis History of recurrent UTI (urinary tract infection) Vitamin D deficiency Medicare annual wellness visit, subsequent Stress incontinence Bilateral shoulder pain Shoulder pain Wrist pain (~2010) Injection of surface of left eye (09/16/20) Diabetic retinopathy, nonproliferative Diabetes Seasonal allergies Glucosuria Retinal degeneration Surgical History Hx of bariatric surgery Anesthesia History of hysterectomy (~01/11/22) History of removal of cyst (~2013) Status post wrist surgery (~2010) Hx of bariatric surgery Cataract extraction status, left eye (11/18/15) History of hysteroscopy (10/17/21) Family History Father Cancer History of heart disease Stroke Mother Bladder infection Brother History of heart disease Grandfather Cancer Grandmother Stroke Grandfather Alcoholism Grandmother History of cholecystectomy Family/Other Multiple sclerosis Social History household members: spouse Smoking Status: Never smoker alcohol intake: current Assessment & Plan Assessment and plan (1) Right nephrolithiasis: Status: Acute (2) Pyelonephritis of right kidney: Status: Acute (3) History of recurrent UTI (urinary tract infection): Status: Acute (4) History of nephrolithiasis: Status: Acute (5) Postmenopausal atrophic vaginitis: Status: Acute Plan ASSESSMENT: 1. Doing well postop day 1 status post cystoscopy/right UPJ stone manipulation/placement right ureteral stent. 2. Right calculus pyelonephritis/urosepsis and recent history of Klebsiella UTI. Admitting urine culture thus far demonstrates no growth. 3. Untreated postmenopausal atrophic vaginitis. PLAN: 1. May discharge from standpoint. 2. Schedule follow-up visit in Urology Clinic in 10-12 days. 3. We will schedule return to [facility] operating room for right extracorporeal shockwave lithotripsy/possible right ureteral stent removal. 4. Begin intravaginal estradiol HRT 2 times per week at HS as explained and instructed. 5. If final urine culture is negative recommend nightly prophylaxis with cephalexin 500 mg p.o. at HS times 60 days. 6. If admitting final urine culture is positive then treat as indicated at therapeutic dose x2 weeks followed by cephalexin 500 mg p.o. at HS times 60 days.
[2024-01-30] MEDS: INSULIN LISPRO 100 UNIT/ML 3ML VIAL SUBCUT ×2 (08:11→12:02)
[2024-01-30] MEDS: CHOLECALCIFEROL (VITAMIN D3) 1,000 UNIT TABLET 2000 UNIT PO (08:27)
[2024-01-30] MEDS: ASCORBIC ACID 500 MG TABLET PO (08:32)
[2024-01-30 09:00] VITALS: BP 119/43; PULSE 65; RESP 16; TEMP 36.2; O2SAT 99
--- NOTE | 2024-01-30 10:12 | CM.DPNOTE ---
DC Note Discharge home w/spouse today, close outpatient follow up recommended. No needs from this CM team identified. LOPEZ
--- NOTE | 2024-01-30 10:33 | PM.DS.1 ---
History of Present Illness History of Present Illness Chief complaint: Poss kidney stone painful Narrative: From Night Doctor: 73 y/o with PMH of right kidney stones admitted with obstructing, 11 mm, Rt ureteral stone at [facility]. She has right flank tenderness and pain, is nauseated and feels generalized weakness. Urologist contacted by ED attending and plans cystoscopy with stent. Started empiric abx and IVFs. Additional history: She does have a history of kidney stones. Her left flank pain is improved with her pain medicine but she is having intermittent restlessness and diaphoresis. She has had 1 previous kidney stone. The urologist and see her this morning and will attempts at placement and possible extraction of stone this afternoon at 3:00 p.m.. She denies any nausea. No fevers, or chills. She was given 1 dose of ceftriaxone this morning. She was found to have a glucose over 500 and an A1c of 12.8 (01/27) and 12.6 (01/20). Discharge Providers Provider Date of admission: 01/29/24 02:50 Discharge Date: 01/30/24 Primary care physician: Celio Hewitt DO Consults: 01/29/24 00:52 Consult to Physician Stat Comment: Consulting Provider: Arnaldo lFores Reason for consultation: kidney stone Has provider been notified: Yes 01/30/24 10:03 Consult to Dietitian, Adult Urgent Comment: Reason For Exam: New diabetes, teaching and glucometer Discharge provider: lBack Steele MD Summary Hospital Course Discharge Diagnosis: 1. Right [facility] stone, present on admission and improved with stenting (01/28). - [facility] on day of discharge. Suppressive cephalexin 500 HS 60 days. Urine culture 3 mixed species. 2. Right Flank pain, present on admission and active. - Rocephin in hospital. 3. DM2 (new and uncontrolled), present on admission and active. - Aic 12 + , started on Metformin 500 BID. 4. Obesity class 1, present on admission and active. Hospital Course: She was admitted with flank pain and found to have an obstructing kidney stone. She was stented on January 28 stone could not be manipulated. Her urine culture had 3 species with no single isolation. She had no fevers. Discussed with urology on the day of discharge and she will be on cephalexin [address] 2 weeks. In addition, she is hypoglycemia and was given correctional lispro here. She was started on metformin 500 p.o. b.i.d.. Her A1c is over 12. Dietary is able to give her some preliminary diet options and she will primary care provider. Status at Discharge Cognitive/behavioral status at discharge: oriented Functional status at discharge: independent ambulation Overall status at discharge: patient is back to baseline Time Spent with Patient Time spent: Greater than 30 minutes Exam Vital Signs (past 8 hours): - 01/30/24 05:36 01/30/24 09:00 Temperature 98 F 97.2 F L Pulse Rate 66 65 Respiratory Rate 20 16 Blood Pressure 124/44 L 119/43 L Pulse Oximetry 97 99 Oxygen Flow Rate 0 Oxygen Delivery Method Room Air Oxygen Flow Rate 0 Narrative Exam Narrative: NAD, alert and oriented. Fluent speech. Lungs are clear, normal rate and effort. Heart is regular, no murmur gallop or rub. Abdomen is soft, non distended. Extremities are free of edema. Objective Imaging CT scan - abdomen: Radiologist's impression: Right proximal ureteral 11 mm calculus at the ureteropelvic junction with moderate right hydronephrosis and perinephric fat stranding. Labs 01/29/24 05:55 01/29/24 05:55 [facility] Medical History (Updated 01/30/24 @ 08:11 by Arnaldo Flores MD) Postmenopausal atrophic vaginitis History of nephrolithiasis History of recurrent UTI (urinary tract infection) Vitamin D deficiency Medicare annual wellness visit, subsequent Stress incontinence Bilateral shoulder pain Shoulder pain Wrist pain (~2010) Injection of surface of left eye (09/16/20) Diabetic retinopathy, nonproliferative Diabetes Seasonal allergies Glucosuria Retinal degeneration Surgical History Hx of bariatric surgery Anesthesia History of hysterectomy (~01/11/22) History of removal of cyst (~2013) Status post wrist surgery (~2010) Hx of bariatric surgery Cataract extraction status, left eye (11/18/15) History of hysteroscopy (10/17/21) Family History Father Cancer History of heart disease Stroke Mother Bladder infection Brother History of heart disease Grandfather Cancer Grandmother Stroke Grandfather Alcoholism Grandmother History of cholecystectomy Family/Other Multiple sclerosis Social History household members: spouse Smoking Status: Never smoker alcohol intake: current Discharge Assessment & Plan Assessment and Plan Assessment: 1. Right [facility] stone, present on admission and improved with stenting (01/28). - [facility] on day of discharge. Suppressive cephalexin 500 HS 60 days. Urine culture 3 mixed species. 2. Right Flank pain, present on admission and active. - Rocephin in hospital. 3. DM2 (new and uncontrolled), present on admission and active. - Aic 12 + , started on Metformin 500 BID. 4. Obesity class 1, present on admission and active. Plan of Treatment: Discharge home with cephalexin 500 HS for 60 days, urology follow-up for definitive stone removal in the next 2 weeks. In addition she was started on metformin 500 b.i.d. with dietary education provided. Close follow up with her PCP for ongoing management. Discharge Plan Discharge Plan Patient Disposition: Home Provider Discharge Comment: Discussed with Urology, Dr. Flores. We will put you on antibiotics 1 tab at bedtime for 60 days for UTI suppression and see him as already scheduled in 2 weeks. Will start on Diabetes pill twice a day. Clsoe follow up with PCP. Discharge orders & Medications Prescriptions: New cephalexin 500 mg capsule 500 mg PO BEDTIME Qty: 60 0RF metformin 500 mg tablet 500 mg PO BID Qty: 60 1RF Continued estradiol [Estrace] 0.01 % (0.1 mg/gram) cream 0.25 appful vaginal 2XW Qty: 42.5 3RF Rx Instructions: Apply to external genitalia twice a week clobetasol 0.05 % ointment 1 applic topical .twice a week Qty: 30 3RF Rx Instructions: Apply a small amount to the external genitalia twice a week ascorbic acid (vitamin C) [Vitamin C] 1,000 mg Tablet 500 mg PO DAILY cholecalciferol (vitamin D3) [Vitamin D3] 50 mcg (2,000 unit) Tablet 50 mcg PO DAILY bilberry fruit 1,000 mg Capsule 2,400 mg PO DAILY Medication counseling provided by Pharmacist: No Follow up/Referrals: Celio Hewitt DO [Primary Care Provider] - Diet/Activity/Treatments Diet: Carb-consistent/Diabetic Visit Report/Discharge Packet Instructions: DI for Cystoscopy Stand Alone Forms: Patient Portal/API, Surgery Discharge Discharge Data Primary Care Provider: Celio Hewitt
[2024-01-30 12:00] VITALS: BP 119/33; PULSE 62; RESP 16; TEMP 36.2; O2SAT 98
--- NOTE | 2024-01-30 12:02 | PM.DS.1 ---
History of Present Illness History of Present Illness Chief complaint: Poss kidney stone painful Narrative: From Night Doctor: 73 y/o with PMH of right kidney stones admitted with obstructing, 11 mm, Rt ureteral stone at [facility]. She has right flank tenderness and pain, is nauseated and feels generalized weakness. Urologist contacted by ED attending and plans cystoscopy with stent. Started empiric abx and IVFs. Additional history: She does have a history of kidney stones. Her left flank pain is improved with her pain medicine but she is having intermittent restlessness and diaphoresis. She has had 1 previous kidney stone. The urologist and see her this morning and will attempts at placement and possible extraction of stone this afternoon at 3:00 p.m.. She denies any nausea. No fevers, or chills. She was given 1 dose of ceftriaxone this morning. She was found to have a glucose over 500 and an A1c of 12.8 (01/27) and 12.6 (01/20). Discharge Providers Provider Date of admission: 01/29/24 02:50 Primary care physician: Celio Hewitt DO Consults: 01/29/24 00:52 Consult to Physician Stat Comment: Consulting Provider: Arnaldo Flores Reason for consultation: kidney stone Has provider been notified: Yes 01/30/24 10:03 Consult to Dietitian, Adult Urgent Comment: Reason For Exam: New diabetes, teaching and glucometer Discharge provider: Black Steele MD Exam Vital Signs (past 8 hours): - 01/30/24 05:36 01/30/24 09:00 Temperature 98 F 97.2 F L Pulse Rate 66 65 Respiratory Rate 20 16 Blood Pressure 124/44 L 119/43 L Pulse Oximetry 97 99 Oxygen Flow Rate 0 Oxygen Delivery Method Room Air Oxygen Flow Rate 0 Objective Labs 01/29/24 05:55 01/29/24 05:55 [facility] Medical History (Updated 01/30/24 @ 08:11 by Arnaldo Flores MD) Postmenopausal atrophic vaginitis History of nephrolithiasis History of recurrent UTI (urinary tract infection) Vitamin D deficiency Medicare annual wellness visit, subsequent Stress incontinence Bilateral shoulder pain Shoulder pain Wrist pain (~2010) Injection of surface of left eye (09/16/20) Diabetic retinopathy, nonproliferative Diabetes Seasonal allergies Glucosuria Retinal degeneration Surgical History Hx of bariatric surgery Anesthesia History of hysterectomy (~01/11/22) History of removal of cyst (~2013) Status post wrist surgery (~2010) Hx of bariatric surgery Cataract extraction status, left eye (11/18/15) History of hysteroscopy (10/17/21) Family History Father Cancer History of heart disease Stroke Mother Bladder infection Brother History of heart disease Grandfather Cancer Grandmother Stroke Grandfather Alcoholism Grandmother History of cholecystectomy Family/Other Multiple sclerosis Social History household members: spouse Smoking Status: Never smoker alcohol intake: current Discharge Assessment & Plan Assessment and Plan Assessment: 1. Right [facility] stone, present on admission and improved with stenting (01/28). - [facility] on day of discharge. Suppressive cephalexin 500 HS 60 days. Urine culture 3 mixed species. 2. Right Flank pain, present on admission and active. - Rocephin in hospital. 3. DM2 (new and uncontrolled), present on admission and active. - Aic 12 + , started on Metformin 500 BID. 4. Obesity class 1, present on admission and active. Plan of Treatment: Discharge home with cephalexin 500 HS for 60 days, urology follow-up for definitive stone removal in the next 2 weeks. In addition she was started on metformin 500 b.i.d. with dietary education provided. Close follow up with her PCP for ongoing management. Discharge Plan Discharge Plan Patient Disposition: Home Provider Discharge Comment: Discussed with Urology, Dr. Flores. We will put you on antibiotics 1 tab at bedtime for 60 days for UTI suppression and see him as already scheduled in 2 weeks. Will start on Diabetes pill twice a day. Clsoe follow up with PCP. Discharge orders & Medications Prescriptions: New cephalexin 500 mg capsule 500 mg PO BEDTIME Qty: 60 0RF metformin 500 mg tablet 500 mg PO BID Qty: 60 1RF Continued estradiol [Estrace] 0.01 % (0.1 mg/gram) cream 0.25 appful vaginal 2XW Qty: 42.5 3RF Rx Instructions: Apply to external genitalia twice a week clobetasol 0.05 % ointment 1 applic topical .twice a week Qty: 30 3RF Rx Instructions: Apply a small amount to the external genitalia twice a week ascorbic acid (vitamin C) [Vitamin C] 1,000 mg Tablet 500 mg PO DAILY cholecalciferol (vitamin D3) [Vitamin D3] 50 mcg (2,000 unit) Tablet 50 mcg PO DAILY bilberry fruit 1,000 mg Capsule 2,400 mg PO DAILY Medication counseling provided by Pharmacist: No Follow up/Referrals: Celio Hewitt, [Primary Care Provider] - Diet/Activity/Treatments Diet: Carb-consistent/Diabetic Visit Report/Discharge Packet Instructions: DI for Cystoscopy Stand Alone Forms: Patient Portal/API, Surgery Discharge Discharge Data Primary Care Provider: Celio Hewitt
--- NOTE | 2024-01-30 12:19 | DIET.CONS ---
Dietary Consultation Note Admission Date: 01/29/2024 02:50 Assessment: 73 y F here following kidney stones. Nutrition consulted for diabetes educ. Met with pt at bedside. She reports previous dx with DM ~11 y ago. She completed baratric surgery 11 y ago and her DM resolved. Due to bariatric surgery she has smaller, frequent meals and snacks. Pt interested in DM educ review and wanting help with meal ideas. She wants foods that are easy to make. Dietary recall: B-1/2 of protein drink L-varies, sandwich (tuna or egg salad or tomato and pickett) or chili soup or Cup of Noodles D-varies, generally consist of protein and a carbohydrate source Has 2 snacks of 1/4 apple and pretzels Drinks zero sugar Gatorade, water, tea/coffee Sometimes has [employer], but has worked to eliminate that in last 2 months Ht: 160.02 cm Wt: 87.09 kg BMI: 34.0 UBW: Last BM: () MNA: 14 Maikel Score: 20 Diet: 01/30/24 Breakfast Carbohydrate Consistent Diet Diet Modifications: Carbohydrate level: Medium (3 CHO) Bedtime snack: Yes Reflex DM orders: No Food Texture: Level 7 - Regular Liquid Consistency: Level 0 - Thin Nutrition Percent Meal Consumed pt npo 01/29/24 12:43 Labs: RBC 3.94 X10^6/uL (4.0-5.2) L 01/29/24 05:55 Hgb 10.6 g/dL (12.0-16.0) L 01/29/24 05:55 Hct 33.0 % (36-46) L 01/29/24 05:55 Creatinine 0.91 mg/dL (0.52-1.04) 01/29/24 05:55 Hemoglobin A1c 12.8 % (4.0-6.0) H 01/28/24 21:20 Lactate 1.1 mmol/L (0.7-2.1) 01/28/24 21:20 Nutrition Diagnosis: Altered nutrition related lab values (A1C) r/t endocrine dysfunction as evidenced by A1C 12.8 on 01/28/24 Interventions: Provided review of DM plate method. Reviewed 1 to 2 ways to help add in non-starchy vegetables and protein to easy meals she currently makes to balance. Will coordinate for diabetes education referral from PCP for outpatient visit with certified adaptive physical educator. EER: 6639-4950 kcals/day (22 kcals per day/[place] [address]. Jeor equation with stress factor of 1.25) 85-95 grams/protein (1.0 grams per day) Monitoring/Evaluations: F/u as needed. Pt to discharge today. Electronically Signed by: Freda Bass 01/30/24 12:19 Clinical Dietitian [address] [id number]
--- NOTE | 2024-01-30 14:25 | PC.NURSE ---
Patient is A&OX4, VSS, afebrile. MD Flores at bedside this a.m. discussing procedure with patient, follow up and antibiotics. Patient is walking with steady gait to the BR. She denies surgical pain or generalized pain. BG in 300's this a.m. Diabetes education ordered for patient. discussed metformin with patient and nurse educator at bedside discussing diagnosis and treatment/diet with patient. Patient is cleared for discharge and verbalizes understanding of medications, plan for follow up with PCP in one week and follow up with urologist in 2 weeks. She is escorted via w/ch with RN with all of her belongings to private vehicle with for discharge home today at 1330.
== END 2024-01-30 13:30 | disposition home or self-care (01) | DRG 660 ==
LOC: ED 21:27 → AC 01-29 02:50
PROVIDERS: Specialist; Admitting Provider Internal Medicine; Emergency Provider Emergency Medicine; PCP Family Medicine; Referring Provider Emergency Medicine; Visit Provider Internal Medicine
PROC: 0T768DZ Dilation of Right Ureter with Intraluminal Device, Via Natural or Artificial Opening Endoscopic (ICD-10-PCS; principal; 2024-01-29 15:30)
DX: N13.6 Pyonephrosis (principal); E87.1 Hypo-osmolality and hyponatremia; E11.65 Type 2 diabetes mellitus with hyperglycemia
CPT/HCPCS: 36415; 52330; 52332; 74018; 74176; 76000; 80048; 80053; 81003; 81015; 82962; 83036; 83605; 85025; 87040; 87086; 96365; 96375; 99221; 99284; 99285; J0696; J1100; J1815; J1885; J2405; J2704; J3010

== ENCOUNTER → 2024-02-04 15:58 | Outpatient (CLI) | payer MEDICARE, OTHER, SELFPAY ==
[2024-01-29 03:48] VITALS: BMI 34.0
[2024-02-04 16:57] LABS: Add Manual Diff / Slide Review NO; Basophils Absolute Auto 100 /uL (0-100); Basophils Percent Auto 0.9 % (0-2); Eosinophils Absolute Auto 100 /uL (0-450); Eosinophils Percent Auto 1.9 % (2-4); Hematocrit 33.2 % (36-46); Hemoglobin 10.8 g/dL (12.0-16.0); Lymphocytes Absolute Auto 1700 /uL (1100-4500); Lymphocytes Percent Auto 26.2 % (25-40); Mean Corpuscular HGB Conc 32.5 % (30-36); Mean Corpuscular Hemoglobin 27.3 PG (26-34); Mean Corpuscular Volume 84.1 fL (80-100); Monocytes Absolute Auto 500 /uL (0-900); Neutrophils Absolute Auto 4200 /uL (1500-7000); Platelet Count 241 X10^3/uL (150-400); Red Blood Cell Count 3.94 X10^6/uL (4.0-5.2); Red Cell Distribution Width 15.4 % (11.6-14.8); White Blood Cell Count 6.5 X10^3/uL (4.5-11.0)
[2024-02-04 17:48] LABS: HEMOLYSIS < 15 (0-50); Iron 44 ug/dL (37-170)
[2024-02-04 18:00] LABS: Percent Iron Saturation 13 % (15-50); Total Iron Binding Capacity 334 ug/dL (265-497); Transferrin 279 mg/dL (206-381)
[2024-02-04 18:26] LABS: Ferritin 17 ng/mL (11-264)
== END ==
PROVIDERS: PCP Family Medicine; Referring Provider Physician Assistant; Visit Provider Physician Assistant
DX: E11.9 Type 2 diabetes mellitus without complications (principal); D64.9 Anemia, unspecified
CPT/HCPCS: 36415; 82728; 83540; 83550; 85025

== ENCOUNTER → 2024-02-07 10:10 | Outpatient (CLI) | payer MEDICARE, OTHER, SELFPAY ==
[2024-01-29 03:48] VITALS: BMI 34.0
--- NOTE | 2024-02-07 12:49 | DIAB.MNT ---
Initial Diabetes Medical Nutrition Therapy Assessment Name: Ruth Stern Date: 02/07/24 Time: 3916-3415 Dx: Type II Diabetes Ruth presents for initial DM visit. PMH of rou en y gastric bypass x 11 years ago which resulting in remission of her DM per report. Had previously been seen by Dr. Knox in [place] for DM care, but was having difficulty managing DM. Recent hospitalization for kidney stone, infection with hyperglycemia. Per EMR, she has had some labs indicating hyperglycemia since 2020. This is new information to her today. No previous dx of DM since gastric sx per report. Today she has questions about her diet, getting enough nutrients, CGM, diabetes medications, and snack ideas. Endorses once encounter of diarrhea with Metformin. PCP asked her to cut in half, so taking 250mg BID. Due to her h/o gastric sx, she eats very small and freq meals. Currently taking some vitamins, but was found to have anemia. States she had not been taking iron or vitamin c. Diet recall: 4am: 1egg 930a: apple slices 1130a: half tomato sandwich or cup of noodles 230p: apple slices and pb 5p: 2 slices of meat with veg 930p: yogurt Endorses poor sleep. Reports sometimes 1am yogurt snack. Anthropometrics: Ht: 5'3 Wt: 192.5# 01/2024 Physical Activity: 30 min walk with dog + ADLs (endorses freq activity at home) Self-Monitoring Blood Glucose: Checking 4-5x per day: FBG, pre/post lunch, post dinner, sometimes 1am. All reported elevated. FBG range from 197-217mg/dl. All others reported in low 200s. Interested in CGM. Diabetes Medications: 500mg Metformin BID (taking half) 0.25mg Ozempic weekly Pertinent Labs: HgA1c: 12.6% 01/21/2024 12.8% 01/28/2024 Glucose: 294 mg/dl 07/2021 192 mg/dl 12/2021 289mg/dl 07/2022 409-585mg/dl During hospitalization 01/2024 Past Medical History: (Last Updated 01/30/24 @ 08:11 by Arnaldo Flores MD) Bilateral shoulder pain Diabetes Type 2. States since bariatric surgery Diabetic retinopathy, nonproliferative Glucosuria History of nephrolithiasis History of recurrent UTI (urinary tract infection) Injection of surface of left eye (09/16/20) Lucentis injection Medicare annual wellness visit, subsequent Postmenopausal atrophic vaginitis Retinal degeneration bilateral, follow with Dr. Olivera, [facility], [place] Seasonal allergies Shoulder pain Broken Stress incontinence Vitamin D deficiency Wrist pain (~2010) Cycle wrist Nutrition Rx: Carbohydrates: Meal:30g Snack:15-30g Nutrition Diagnosis: - Nutrition and food related knowledge deficit r/t no previous MNT or dm ed aeb pt report - Inconsistent protein intake r/t knowledge deficit aeb diet recall - Inadequate vitamin intake r/t knowledge deficit aeb not taking all necessary bariatric vitamins and anemia per labs. Intervention: This participant was very receptive. Provided appropriate educational handouts. Discussed the following topics: Completed intake assessment. Discussed barriers to care. Pairing macronutrients Recommended servings for carbohydrates at meals and snacks Rec vitamins for post bariatric sx Snack ideas and list Medication actions and SE CGM beneifts, cost, precautions, when to check meter, accuracy, and direction for self placement Created SMART goals for patient self-care and success. Goals: Wear FSL x 14 days Check bariatric vitamins at home Pair protein with snacks Follow-up: MIKE PARRISH follow-up in 2-3 weeks Xenia Liang RDN, SHIVANI Certified Diabetes Care and Ceramic Design Engineer P: [phone] Thank you for this referral
== END ==
PROVIDERS: PCP Family Medicine; Referring Provider Family Medicine; Visit Provider Family Medicine
DX: E11.9 Type 2 diabetes mellitus without complications (principal); Z79.84 Long term (current) use of oral hypoglycemic drugs; Z79.85 Long-term (current) use of injectable non-insulin antidiabetic drugs; Z98.84 Bariatric surgery status; Z71.3 Dietary counseling and surveillance
CPT/HCPCS: 97802

== ENCOUNTER → 2024-02-10 07:47 | Outpatient (CLI) | payer MEDICARE, OTHER, SELFPAY ==
[2024-01-29 03:48] VITALS: BMI 34.0
--- NOTE | 2024-02-10 07:49 | DI.RAD.S_ITS ---
PROCEDURE: XR KUB INDICATIONS: P/O ureteral stent placement/kidney stone TECHNIQUE: One view of the abdomen acquired. COMPARISON: [facility], CR, XR ABDOMEN 1V, 01/29/2024, 19:56. FINDINGS: Surgical changes and devices: Right ureteral stent. Bowel: Bowel gas pattern is normal. Soft tissues: No change in right renal calculus.. Visualized solid organ contours appear normal in size. Bones: No suspicious bony lesions. IMPRESSION: No change in right renal calculus. Dictated by: Timothy Vasquez M.D. on 02/10/2024 at 10:19 Approved by: Timothy Vasquez M.D. on 02/10/2024 at 10:20
[2024-02-11 13:11] LABS: Fecal Immunochemical Test Negative (Negative)
== END ==
PROVIDERS: PCP Family Medicine; Referring Provider Specialist; Visit Provider Specialist
DX: N12 Tubulo-interstitial nephritis, not specified as acute or chronic (principal); N13.2 Hydronephrosis with renal and ureteral calculous obstruction; Z12.11 Encounter for screening for malignant neoplasm of colon; Z96.0 Presence of urogenital implants
CPT/HCPCS: 74018; 82274

== ENCOUNTER → 2024-02-12 08:17 | Outpatient (CLI) | payer MEDICARE, OTHER, SELFPAY ==
[2024-01-29 03:48] VITALS: BMI 34.0
== END ==
PROVIDERS: PCP Family Medicine; Visit Provider Specialist
DX: N20.0 Calculus of kidney (principal); N95.2 Postmenopausal atrophic vaginitis; Z87.440 Personal history of urinary (tract) infections; Z87.442 Personal history of urinary calculi
CPT/HCPCS: 81002; 87077; 87086; 99215

== ENCOUNTER → 2024-02-25 08:49 | Outpatient (CLI) | payer MEDICARE, OTHER, SELFPAY ==
[2024-01-29 03:48] VITALS: BMI 34.0
--- NOTE | 2024-03-09 08:42 | DIAB.MNTFU ---
Follow-up Diabetes Medical Nutrition Therapy Assessment Name: Ruth Stern Date: 02/25/24 Time: a Dx: Type II Diabetes Ruth presents for DM follow-up. Still expresses shock in diagnosis since she eats so little and feels this came on so sudden. Revamped pantry and threw out foods she felt would raise BG. Interested in more plant based proteins, ie beans. Found online recipes that are higher in PRO and lower in CHO. Eating low sugar ice cream. Tried turkey sausage, but did not like it. Likes chx sausage. Eating more veggies. Cannot tolerate Metformin due to diarrhea. Has May appt with PCP. Hoping the inc in Ozempic next week will reduce BG more. Little diarrhea with GLP1RA but tolerable. Expensive but she can afford per report. Recent poor sleep and infection. Has kidney stone sx this week. Wants snack ideas. Anthropometrics: Ht: 5'3 Wt: 192.5# 01/2024 Physical Activity: 30 min walk with dog + ADLs (endorses freq activity at home) Self-Monitoring Blood Glucose: Worse FSL. FBG elevated. Low glucose variability indicating CHO at meals likely not excessive for most meals. Wakes with BG over 180mg/dl most mornings. Found that she cannot use CGM coupons with her insurance. TIR: 16% very high 68% high 16% in range 0% low av mg/dl GMI: 8.5% 17% glucose variability Diabetes Medications: 500mg Metformin BID (taking half) 0.25mg Ozempic weekly Pertinent Labs: HgA1c: 12.6% 01/21/2024 12.8% 01/28/2024 Glucose: 294 mg/dl 07/2021 192 mg/dl 12/2021 289mg/dl 07/2022 409-585mg/dl During hospitalization 01/2024 Past Medical History: (Last Updated 02/12/24 @ 08:39 by Arnaldo Flores MD) Bilateral shoulder pain Calculus of right kidney Diabetes Type 2. States since bariatric surgery Diabetic retinopathy, nonproliferative Glucosuria History of nephrolithiasis History of recurrent UTI (urinary tract infection) Injection of surface of left eye (09/16/20) Lucentis injection Medicare annual wellness visit, subsequent Postmenopausal atrophic vaginitis Retinal degeneration bilateral, follow with Dr. Olivera, [facility], [place] Right nephrolithiasis Seasonal allergies Shoulder pain Broken Stress incontinence Vitamin D deficiency Wrist pain (~2010) Cycle wrist Nutrition Rx: Carbohydrates: Meal:30g Snack:15-30g Nutrition Diagnosis: - Nutrition and food related knowledge deficit r/t no previous MNT or dm ed aeb pt report- improved - Inconsistent protein intake r/t knowledge deficit aeb diet recall- improved - Inadequate vitamin intake r/t knowledge deficit aeb not taking all necessary bariatric vitamins and anemia per labs. - in progress Intervention: This participant was very receptive. Provided appropriate educational handouts. Discussed the following topics: Blood sugar trends. Impact of food intake and medications on results. Medication review, SE, action Plate Method, impact of macronutrients on blood sugar, meal timing, carbohydrate counting, pairing macronutrients and spreading out carbohydrates for better blood glucose management Heart health nutrition: fats, fiber, and sodium Vitamin c and kidney stones Snack ideas Meal planning and carb counting review Plant based proteins Created SMART goals for patient self-care and success. Goals: Wear FSL x 14 days- met Check bariatric vitamins at home- in progress Pair protein with snacks - met Check FBG - new Try low CHO tortillas- new Buy chickpeas- new Check out recipe website- new Follow-up: MIKE PARRISH follow-up in 2-3 weeks Xenia Liang RDN, [facility] Certified Diabetes Care and Transplant Surgeon P: [phone] Thank you for this referral
== END ==
PROVIDERS: PCP Family Medicine; Referring Provider Family Medicine
DX: E11.9 Type 2 diabetes mellitus without complications (principal); Z79.84 Long term (current) use of oral hypoglycemic drugs; Z79.85 Long-term (current) use of injectable non-insulin antidiabetic drugs; Z71.3 Dietary counseling and surveillance
CPT/HCPCS: 97803

== ENCOUNTER 2024-02-28 06:21 | Day surgery (SDC) | payer MEDICARE, OTHER, SELFPAY ==
[2024-01-29 03:48] VITALS: BMI 34.0
[2024-02-19 14:47] VITALS: BMI 33.6
[2024-02-28] VITALS (7 sets, daily range): BP systolic 101–139; BP diastolic 56–79; PULSE 64–75; RESP 13–16; TEMP 36.1–36.4; O2SAT 97–98; BMI 33.6
--- NOTE | 2024-02-28 06:00 | DI.RAD.S_ITS ---
PROCEDURE: XR KUB INDICATIONS: Right nephrolithiasis TECHNIQUE: One view of the abdomen acquired. COMPARISON: [facility], CT, CT KIDNEY URETER BLADDER (KUB), 01/28/2024, 22:24. [facility], CR, XR KUB, 02/10/2024, 7:52. FINDINGS: Surgical changes and devices: Right ureteral stent is unchanged in positioning. Bowel: Nonobstructive bowel gas pattern. Soft tissues: No suspicious abdominal calcifications. Stable appearance of right urolith. Visualized solid organ contours appear normal in size. Bones: No suspicious bony lesions. IMPRESSION: Stable radiographic appearance of the abdomen and appearance of right-sided urolith. No acute abnormalities identified. Dictated by: Wali Saenz M.D. on 02/28/2024 at 7:30 Approved by: Wali Saenz M.D. on 02/28/2024 at 7:33
[2024-02-28] MEDS: ACETAMINOPHEN IV 1,000 MG/100 ML VIAL 400 MG IV (07:04)
[2024-02-28] MEDS: LACTATED RINGERS 1,000 ML 21 ML IV (07:05)
--- NOTE | 2024-02-28 07:17 | PM.PREOP ---
Pre-operative Note Interval Note History & Physical reviewed/Exam performed by Physician: Yes Changes to H&P: No
[2024-02-28] MEDS: CIPROFLOXACIN 400 MG/200 ML PIGGYBACK 200 MG IV (07:45)
--- NOTE | 2024-02-28 08:03 | SUR.OPER ---
Supine on ESWL bed, head on pillow, arms padded and tucked at sides, legs uncrossed. Warm blankets on top
--- NOTE | 2024-02-28 08:34 | P.OP_ITS ---
Operative Date/Time/Diagnoses Date of procedure: 02/28/24 Time of procedure: 08:45 Pre-op diagnosis: 1. Right nephrolithiasis 2. Retained right ureteral stent 3. History right pyelonephritis Post-op diagnosis: same Procedure & Clinicians Procedure: 1. Right extracorporeal shockwave lithotripsy (maximal power level 7.5 x2 1004 shocks) 2. Cystoscopy/right ureteral stent. Same procedure as scheduled: Yes Indications: 1. Large right renal calculus 2. Retained right ureteral stent 3. History of right pyelonephritis Surgeon: Arnaldo Flores Click Yes if Unassisted: Yes Anesthesia Type: General Operative Notes Findings: Index calculus within the central right renal collecting system. Unchanged in position compared to preoperative imaging. Intact right ureteral stent. Closure Type: not applicable Specimen(s): none sent Estimated Blood Loss (mL): 0 Blood products transfused: none Procedure in detail: The patient was positioned in supine was administered general anesthesia. The index calculus was then localized in the X, Y, and Z plane. Lithotripsy was then commenced at minimal power level for 200 shocks. A 2 minute pause was then conducted. Lithotripsy was then resumed and the power level gradually increased to a maximum of 7.5. Throughout the case the stone was imaged via real-time fluoroscopy and adjustments were made as needed to accomplish stone comminution. At 2400 shocks there was excellent radiographic evidence of stone comminution. Treatment was halted. The patient was then repositioned into semi lithotomy in the lower abdomen, groin, and genitalia were prepped and draped in sterile fashion. The 22 Russian panendoscope was then introduced in the bladder and the contents were drained. An alligator tooth foreign body grasper was then advanced through the working channel of the panendoscope and the distal end of the retained right ureteral stent was then engaged and removed without incident. The bladder was once again drained and the panendoscope was removed. The patient was repositioned in supine, was awakened, transferred to [facility] and then transported recovery in stable condition. Complications: none Post-operative Condition: stable Disposition: PACU Plan for aftercare: Discharge home.
== END 2024-02-28 09:36 | disposition home or self-care (01) ==
PROVIDERS: PCP Family Medicine; Referring Provider Specialist; Visit Provider Specialist
PROC: (CPT 50590; principal; 2024-02-28 07:45)
DX: N20.0 Calculus of kidney (principal)
CPT/HCPCS: 50590; 52332; 74018; 82962; J0136; J0744; J2704; J3010

== ENCOUNTER → 2024-03-24 07:46 | Outpatient (CLI) | payer MEDICARE, OTHER, SELFPAY ==
[2024-01-29 03:48] VITALS: BMI 34.0
--- NOTE | 2024-03-24 07:48 | DI.RAD.S_ITS ---
PROCEDURE: XR KUB INDICATIONS: Kidney stone TECHNIQUE: One view of the abdomen acquired. COMPARISON: [facility], CR, XR KUB, 02/28/2024, 6:32. FINDINGS: Surgical changes and devices: Right ureterovesicular stent is been removed. Bowel: Bowel gas pattern is normal. Prominent colonic stool. Soft tissues: No suspicious abdominal calcifications. Previous calcification overlying the right kidney is no longer visualized. Visualized solid organ contours appear normal in size. Bones: No suspicious bony lesions. IMPRESSION: Previous calcification overlying the right kidney is no longer visualized. Dictated by: Poornima Cabezas M.D. on 03/24/2024 at 8:32 Approved by: Poornima Cabezas M.D. on 03/24/2024 at 8:32
== END ==
PROVIDERS: PCP Family Medicine; Referring Provider Specialist; Visit Provider Specialist
DX: N20.0 Calculus of kidney (principal)
CPT/HCPCS: 74018

== ENCOUNTER → 2024-03-25 10:13 | Outpatient (CLI) | payer MEDICARE, OTHER, SELFPAY ==
[2024-01-29 03:48] VITALS: BMI 34.0
== END ==
PROVIDERS: PCP Family Medicine; Visit Provider Specialist
DX: N13.2 Hydronephrosis with renal and ureteral calculous obstruction (principal); Z87.440 Personal history of urinary (tract) infections
CPT/HCPCS: 82365; 87086

== ENCOUNTER → 2024-03-31 07:01 | Outpatient (CLI) | payer MEDICARE, OTHER, SELFPAY ==
[2024-01-29 03:48] VITALS: BMI 34.0
[2024-03-31 07:53] LABS: Add Manual Diff / Slide Review NO; Basophils Absolute Auto 0 /uL (0-100); Basophils Percent Auto 0.5 % (0-2); Eosinophils Absolute Auto 100 /uL (0-450); Eosinophils Percent Auto 1.9 % (2-4); Hematocrit 33.5 % (36-46); Hemoglobin 11.1 g/dL (12.0-16.0); Lymphocytes Absolute Auto 1500 /uL (1100-4500); Lymphocytes Percent Auto 28.8 % (25-40); Mean Corpuscular Hemoglobin 27.9 PG (26-34); Mean Corpuscular Volume 84.6 fL (80-100); Monocytes Absolute Auto 400 /uL (0-900); Monocytes Percent Auto 7.1 % (3-14); Neutrophils Absolute Auto 3200 /uL (1500-7000); Neutrophils Percent Auto 61.7 % (50-75); Platelet Count 181 X10^3/uL (150-400); Red Blood Cell Count 3.96 X10^6/uL (4.0-5.2); Red Cell Distribution Width 14.9 % (11.6-14.8); White Blood Cell Count 5.2 X10^3/uL (4.5-11.0)
[2024-03-31 08:02] LABS: Hemoglobin A1C% w Est Avg Glu 9.3 % (4.0-6.0)
[2024-03-31 09:00] LABS: Vitamin B12 726 pg/mL (239-931)
== END ==
PROVIDERS: PCP Family Medicine; Referring Provider Physician Assistant; Visit Provider Physician Assistant
DX: D64.9 Anemia, unspecified (principal)
CPT/HCPCS: 36415; 82607; 83036; 85025

== ENCOUNTER → 2024-05-19 11:50 | Outpatient (CLI) | payer MEDICARE, OTHER, SELFPAY ==
[2024-01-29 03:48] VITALS: BMI 34.0
[2024-05-19 13:02] LABS: Appearance Urine UA CLOUDY; Bilirubin Urine UA NEGATIVE (NEGATIVE); Color Urine UA YELLOW; Glucose Urine UA NEGATIVE (Negative); Ketones Urine UA NEGATIVE (NEGATIVE); Leukocyte Esterase Urine UA 3+ (NEGATIVE); Nitrite Urine UA POSITIVE (Negative); Occult Blood Urine UA NEGATIVE (Negative); Protein Urine UA TRACE (Negative)
[2024-05-19 13:03] LABS: pH Urine UA 5.5 (4.5-8.0)
[2024-05-19 13:11] LABS: RBC Urine 1-5/HPF (0-5/HPF); Urine Volume 10mL (spun)
[2024-05-19 13:12] LABS: Bacteria Urine Few (2-10); Culture Indicated Urine Specimen Cultured; Hyaline Casts Urine 0-1/LPF; Squamous Epithelial Cell Urine 5-10 /HPF (0-5/HPF); WBC Urine >100/HPF (0-5/HPF)
== END ==
PROVIDERS: PCP Family Medicine; Referring Provider Family Medicine; Visit Provider Family Medicine
DX: R39.9 Unspecified symptoms and signs involving the genitourinary system (principal)
CPT/HCPCS: 81001; 87077; 87086; 87186

== ENCOUNTER → 2024-06-08 08:01 | Outpatient (CLI) | payer MEDICARE, OTHER, SELFPAY ==
[2024-01-29 03:48] VITALS: BMI 34.0
== END ==
PROVIDERS: PCP Family Medicine; Referring Provider Specialist; Visit Provider Specialist
DX: Z87.440 Personal history of urinary (tract) infections (principal)
CPT/HCPCS: 87077; 87086

== ENCOUNTER → 2024-07-29 08:22 | Outpatient (CLI) | payer MEDICARE, OTHER, SELFPAY ==
[2024-01-29 03:48] VITALS: BMI 34.0
== END ==
PROVIDERS: PCP Family Medicine; Visit Provider Urology
DX: R39.9 Unspecified symptoms and signs involving the genitourinary system (principal)
CPT/HCPCS: 87077; 87086; 87186

== ENCOUNTER → 2025-01-26 08:25 | Outpatient (CLI) | payer MEDICARE, OTHER, SELFPAY ==
[2024-01-29 03:48] VITALS: BMI 34.0
== END ==
PROVIDERS: PCP Family Medicine; Visit Provider Urology
DX: N39.0 Urinary tract infection, site not specified (principal)
CPT/HCPCS: 87086

== ENCOUNTER → 2025-05-13 09:43 | Outpatient (CLI) | payer MEDICARE, OTHER, SELFPAY ==
[2024-01-29 03:48] VITALS: BMI 34.0
== END ==
PROVIDERS: PCP Family Medicine; Visit Provider Physician Assistant
DX: N39.0 Urinary tract infection, site not specified (principal)
CPT/HCPCS: 87086

== ENCOUNTER → 2025-06-18 06:41 | Outpatient (CLI) | payer MEDICARE, OTHER, SELFPAY ==
[2024-01-29 03:48] VITALS: BMI 34.0
[2025-06-18 07:44] LABS: Add Manual Diff / Slide Review NO; Hematocrit 35.0 % (36-46); Hemoglobin 11.5 g/dL (12.0-16.0); Lymphocytes Absolute Auto 1400 /uL (1100-4500); Mean Corpuscular HGB Conc 32.9 % (30-36); Mean Corpuscular Hemoglobin 29.3 PG (26-34); Mean Corpuscular Volume 89.0 fL (80-100); Platelet Count 174 X10^3/uL (150-400)
[2025-06-18 07:51] LABS: Hemoglobin A1C% w Est Avg Glu 6.3 % (4.0-6.0)
[2025-06-18 08:05] LABS: Alanine Aminotransferase 14 IU/L (<35); Albumin 3.9 g/dL (3.5-5.0); Albumin Globulin Ratio 1.5 (1.0-2.8); Alkaline Phosphatase 90 U/L (38-126); Blood Urea Nitrogen 13 mg/dL (7-17); Calcium 8.7 mg/dL (8.4-10.2); Carbon Dioxide 27 mmol/L (22-32); Chloride 104 mmol/L (98-107); Cholesterol 182 mg/dL (140-199); Estimated Glomerular Filt Rate > 60 mL/min (>60); Globulin 2.6 g/dL (1.7-4.1); Glucose 140 mg/dL (70-99); HDL Cholesterol 78 mg/dL (40-60); HEMOLYSIS < 15 (0-50); Potassium 4.2 mmol/L (3.4-5.1); Sodium 138 mmol/L (137-145); Total Protein 6.5 g/dL (6.3-8.2); Triglycerides 58 mg/dL (35-150)
[2025-06-18 08:23] LABS: Vitamin D 25 Hydroxy (D3) 24.5 ng/mL (30.0-100.0)
== END ==
PROVIDERS: PCP Family Medicine; Referring Provider Family Medicine; Visit Provider Family Medicine
DX: D64.9 Anemia, unspecified (principal); E11.9 Type 2 diabetes mellitus without complications; E55.9 Vitamin D deficiency, unspecified
CPT/HCPCS: 36415; 80053; 80061; 82306; 83036; 85025

== ENCOUNTER → 2025-07-26 08:09 | Outpatient (CLI) | payer MEDICARE, OTHER, SELFPAY ==
[2024-01-29 03:48] VITALS: BMI 34.0
== END ==
PROVIDERS: PCP Family Medicine; Visit Provider Urology
DX: R39.9 Unspecified symptoms and signs involving the genitourinary system (principal); N39.0 Urinary tract infection, site not specified; Z87.442 Personal history of urinary calculi; N95.2 Postmenopausal atrophic vaginitis; Z68.32 Body mass index [BMI] 32.0-32.9, adult
CPT/HCPCS: 51798; 81002; 87077; 87086; 87186; 99214